=== PATIENT | male | born 1960 | race Caucasian/White ===

== ENCOUNTER 2017-01-17 12:10 | Inpatient (IN) | payer OTHER ==
[~2017-01-17] VITALS: Ht 175.3 cm; Wt 59.0 kg
[~2017-01-17 12:10] MED LIST: ALBUAER3 INH; FERR325T8 PO; HYDR-3516 PO; LIDOCAINE HCL 1% PF 5 ML AMPULE OTHER ONE; LOPE2CAP PO; MAPA325T PO; MIDAZOLAM HCL 2 MG/2 ML VIAL IV ONE; NABU1TAB37 PO; PROPOFOL 200 MG/20 ML AMP IV ONE; THERTAB12 PO; TIOT1AER INH; TIZA2TAB PO; UMEC1AER INH; ZOFR4TAB PO
[2017-01-17 12:26] VITALS: BP 110/68; PULSE 70; RESP 18; TEMP 98; O2SAT 100
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
[2017-01-17] MEDS ORDERED: SPIRCAP INH (12:58)
[2017-01-17] MEDS ORDERED: MILKSUS PO (12:58)
[2017-01-17] MEDS ORDERED: HYDR-3534 PO (12:58)
[2017-01-17] MEDS ORDERED: PANTOPRAZOLE SODIUM 40 MG VIAL IVP ONE (13:00)
[2017-01-17] MEDS ORDERED: SODIUM CHLORIDE 0.9% FLUSH 10 ML FLUSH IVF PRN (13:00)
[2017-01-17] MEDS ORDERED: SODIUM CHLOR 0.9% 1000 ML INJ 1,000 ML IV ONE (13:00)
[2017-01-17 13:05] VITALS: BP 125/60
[2017-01-17 13:40] LABS: AUTOMATED NEUTROPHIL # 6.1 TH/MM3 (1.8-7.7); BASOPHIL # 0.1 TH/MM3 (0-0.2); BASOPHIL % 0.9 % (0.0-2.0); EOSINOPHIL # 0.1 TH/MM3 (0-0.4); EOSINOPHIL % 1.3 % (0.0-4.0); HEMO FLAGS DIFF FINAL; LYMPH % 20.7 % (9.0-44.0); LYMPHOCYTE # 1.8 TH/MM3 (1.0-4.8); MEAN CELL VOLUME 90.4 FL (80.0-100.0); MEAN CORPUSCULAR HEMOGLOBIN 28.9 PG (27.0-34.0); MONO % 7.6 % (0.0-8.0); NEUT % 69.5 % (16.0-70.0); PLATELET COUNT 321 TH/MM3 (150-450); RED BLOOD COUNT 3.77 MIL/MM3 (4.50-5.90); RED CELL DISTRIBUTION WIDTH 17.7 % (11.6-17.2); WHITE BLOOD COUNT 8.8 TH/MM3 (4.0-11.0)
[2017-01-17 13:48] LABS: BACTERIA, URINE MANY /hpf; BLOOD, URINE SMALL (NEG); GLUCOSE,URINE NEG (NEG); KETONE, URINE NEG (NEG); NITRITE,URINE POS (NEG); URINE COLOR YELLOW (YELLW/STRAW)
[2017-01-17 13:49] LABS: APTT (PATIENT) 29.7 SEC (24.3-30.1); INTERNATIONAL NORMALIZED RATIO 0.9 RATIO; PROTHROMBIN TIME - PATIENT 10.2 SEC (9.8-11.6)
[2017-01-17 13:49] LABS: COMMENT (UR) CULTURE INDICATED; CULTURE IF INDICATED CULTURE INDICATED
[2017-01-17 14:00] LABS: ANION GAP 9 MEQ/L (5-15); AST (GOT) 8 U/L (15-37); BICARBONATE 14.2 MEQ/L (21.0-32.0); BLOOD UREA NITROGEN 33 MG/DL (7-18); CHLORIDE 116 MEQ/L (98-107); GLOMERULAR FILTRATION RATE 43 ML/MIN (>89); POTASSIUM 4.6 MEQ/L (3.5-5.1); SODIUM (NA) 139 MEQ/L (136-145)
[2017-01-17 14:04] LABS: ALKALINE PHOSPHATASE 94 U/L (45-117); ALT (GPT) 7 U/L (12-78); TOTAL BILIRUBIN ADULT 0.5 MG/DL (0.2-1.0)
[2017-01-17] MEDS ORDERED: IOHEXOL 350 MG/ML 10 ML VIAL (for RAD DIAG) IVCONTRAST ONE (14:33)
--- NOTE | 2017-01-17 15:05 | RADRPT ---
EXAM DATE/TIME: 01/17/2017 14:33 [facility] COMPARISON: CT ABDOMEN & PELVIS W CONTRAST, September 16, 2016, 14:46. INDICATIONS : Diffuse abdomen pain and vomiting today. IV CONTRAST: 92 cc Omnipaque 350 (iohexol) IV ORAL CONTRAST: No oral contrast ingested. RADIATION DOSE: 4.56 CTDIvol (mGy) MEDICAL HISTORY : Pancreatitis. Carcinoma, bladder. Hepatitis C. SURGICAL HISTORY : Appendectomy. ENCOUNTER: Initial ACUITY: 1 day PAIN SCALE: 7/10 LOCATION: Bilateral abdomen TECHNIQUE: Volumetric scanning of the abdomen and pelvis was performed. Using automated exposure control and ad justment of the mA and/or kV according to patient size, radiation dose was kept as low as reasonably achievable to obtain optimal diagnostic quality images. DICOM format image data is available electro nically for review and comparison. FINDINGS: No pleural or pericardial effusions are seen. Liver, gallbladder, spleen, adrenal glands are unremark able. There are parenchymal calcifications of the pancreas characteristic of chronic pancreatitis najma cifications without evidence for acute pancreatitis. No signs of bowel obstruction. There is a promin ent stool ball in the rectum. There are numerous surgical clips in the pelvis and the bladder is not visualized consistent with previous cystectomy. There is severe left sided hydronephrosis, and there are bilateral nonobstructing renal calculi identified with layering calcifications in the left mid to lower pole collecting system and nonobstructing stones on the right. Right lower quadrant ileostomy is noted. Lung bases are clear. Osseous structures demonstrate degenerative changes of the spine. CONCLUSION: 1. Severe left hydronephrosis and bilateral nephrolithiasis, nonobstructing identified. 2. Chronic pancreatic calcifications and not mentioned above are numerous varices in the periesophage al, gastric and left upper quadrant. Heath Charles MD on January 17, 2017 at 14:44 Board Certified Radiologist. This report was verified electronically.
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
[2017-01-17] MEDS ORDERED: LOPERAMIDE HCL 2 MG CAP PO PRN (16:00)
[2017-01-17] MEDS ORDERED: MAGNESIUM HYDROXIDE SUSP 30 ML CUP PO PRN ×2 (16:00→16:15)
[2017-01-17] MEDS ORDERED: ALBUTEROL SULFATE 90 MCG/ACT HFA 8 GM INHALER INH PRN (16:00)
[2017-01-17] MEDS ORDERED: NALOXONE HCL 0.4 MG/ML AMP IV PUSH PRN (16:15)
[2017-01-17] MEDS ORDERED: BISACODYL 10 MG SUPP RECTAL PRN (16:15)
[2017-01-17] MEDS ORDERED: ONDANSETRON HCL 4 MG/2 ML VIAL IVP PRN (16:15)
[2017-01-17] MEDS ORDERED: SENNOSIDES 8.6 MG TAB PO PRN (16:15)
[2017-01-17] MEDS ORDERED: LACTULOSE SYRUP 20 GM/30 ML CUP PO PRN (16:15)
[2017-01-17] MEDS ORDERED: SODIUM CHLORIDE 0.9% FLUSH 10 ML FLUSH IV FLUSH PRN (16:15)
[2017-01-17] MEDS: LACTATED RINGER'S 1000 ML INJ 1,000 ML IV SCH ×2 (16:22→17:00)
[2017-01-17] MEDS ORDERED: ONDANSETRON ODT 4 MG TAB PO PRN (16:30)
[2017-01-17] MEDS ORDERED: PILL SPLITTER OTHER PRN (16:30)
--- NOTE | 2017-01-17 16:43 | PD.PROCEDR ---
GI Procedure PROCEDURE PERFORMED Upper endoscopy with biopsy INDICATION FOR PROCEDURE Nausea vomiting coffee-ground emesis PROCEDURE: The procedure, risks and benefits were discussed with Mr. Peguero and informed consent was obtained. Anesthesia sedated him with Diprivan. He was placed in the left lateral decubitus position. EGD: The Pentax videoscope was introduced through the oropharynx and advanced to the second portion of the duodenum under direct visualization. Retroflexion was performed in the stomach. FINDINGS: Mild esophagitis Mild gastritis was kept gastropathy in the body of the stomach biopsy from the body ESTIMATED BLOOD LOSS: None SPECIMENS REMOVED: Body of the stomach COMPLICATIONS: None IMPRESSION: No sign of active bleeding, no old blood or coffee ground emesis Gastropathy Mild gastritis Mild esophagitis PLAN: Continue PPI patient Await biopsy results Keegan Hester MD Jan 17, 2017 16:43
[2017-01-17] MEDS ORDERED: DO NOT ADM ANY ANTICOAGULANT DRUGS PRN (16:50)
[2017-01-17] MEDS ORDERED: *RESP: ALBUTEROL 2.5 MG/3 ML NEB (PRN) PERIprocedural Use ONLY NEB ONE (16:55)
--- NOTE | 2017-01-17 18:05 | HHI.PR ---
Objective Objective Results - Vital Signs Date Time Temp Pulse Resp B/P (MAP) Pulse Ox O2 Delivery O2 Flow Rate FiO2 01/17/17 17:18 100 01/17/17 13:05 125/60 (81) 01/17/17 12:26 98.0 70 18 110/68 (82) 100 Room Air 01/17/17 12:21 18 I/O 01/16/17 01/16/17 01/16/17 01/17/17 01/17/17 01/17/17 07:00 15:00 23:00 07:00 15:00 23:00 Intake Total 200 ml Balance 200 ml Other 200 ml (Judith Bah) Result Diagram: 01/17/17 1230 01/17/17 1230 A/P Assessment and Plan [id number] (Judith Bah) Assessment and Plan seen, examined by myself, Dr Romero, today Discussed with patient Discussed with mid level provider This is a 56-year-old male with history of advanced bladder cancer status post cystectomy with ileal conduit. [facility] after vomiting coffee grounds. When asked about why he is at the prison his reply was "I am dying of cancer" An upper endoscopy was done and shows esophagogastritis, endoscopic biopsy was done of his stomach His hemoglobin is stable, also he has a left-sided severe hydronephrosis, urology is consulted, the patient smokes 3 packs of cigarettes a day, CT scan impression was of possible esophageal varices however it was no reported bleeding from the varices on endoscopy Discussed with nurse Continue Protonix Follow hemoglobin levels Full history and physical to follow The exam, history, and the medical decision-making described in the above note were completed with the assistance of the mid-level provider. I reviewed the findings presented. I attest that I had a [id number] encounter with the patient on the same day, and personally performed and documented my assessment and findings in the medical record. (Garcia Romero MD) Judith Bah Jan 17, 2017 18:05 Garcia Romero MD Jan 17, 2017 18:39
[2017-01-17] MEDS: FERROUS SULFATE 325 MG (65 MG ELEMENTAL IRON) TAB PO SCH (18:12)
--- NOTE | 2017-01-17 18:40 | HP.UPD ---
H&P Update Note The Pre-Admit History and Physical Examination regarding the above named patient was reviewed (including, but not limited to, vital signs, medications, allergies, co-morbid conditions), and upon re-examination it is noted that: seen, examined by myself, Dr Romero, today Discussed with patient Discussed with mid level provider This is a 56-year-old male with history of advanced bladder cancer status post cystectomy with ileal conduit. [facility] after vomiting coffee grounds. When asked about why he is at the jail his reply was "I am dying of cancer" An upper endoscopy was done and shows esophagogastritis, endoscopic biopsy was done of his stomach His hemoglobin is stable, also he has a left-sided severe hydronephrosis, urology is consulted, the patient smokes 3 packs of cigarettes a day, CT scan impression was of possible esophageal varices however it was no reported bleeding from the varices on endoscopy Discussed with nurse Continue Protonix Follow hemoglobin levels Full history and physical to follow Garcia Romero MD Jan 17, 2017 18:39
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
[2017-01-17 20:00] VITALS: BP 82/50; PULSE 78; RESP 18; TEMP 97.4; O2SAT 100
[2017-01-17 20:16] VITALS: BP 92/51; PULSE 68; RESP 18; TEMP 97.7; O2SAT 100
[2017-01-17] MEDS: PANTOPRAZOLE SOD 40 MG DELAYED RELEASE TAB PO SCH (22:44)
[2017-01-17] MEDS: DOCUSATE SODIUM 50 MG/SENNA 8.6 MG TAB PO SCH (22:46)
[2017-01-17] MEDS: NABUMETONE 500 MG TAB PO SCH (22:47)
[2017-01-17] MEDS: ACETAMINOPHEN/HYDROcodone 325 MG/7.5 MG TAB PO SCH (22:47)
[2017-01-17] MEDS: SODIUM CHLORIDE 0.9% FLUSH 10 ML FLUSH IV FLUSH SCH (22:47)
[2017-01-18] VITALS (7 sets, daily range): BP systolic 68–92; BP diastolic 47–70; PULSE 62–78; RESP 18; TEMP 97.2–98.1; O2SAT 95–100
[2017-01-18] MEDS ORDERED: PANTOPRAZOLE SODIUM 40 MG VIAL IV PUSH SCH (01:00)
[2017-01-18] MEDS: LACTATED RINGER'S 1000 ML INJ 1,000 ML IV SCH (03:09)
[2017-01-18] MEDS: TIOTROPIUM BROMIDE 18 MCG INH INH SCH (09:00)
[2017-01-18] MEDS: SODIUM CHLORIDE 0.9% FLUSH 10 ML FLUSH IV FLUSH SCH ×2 (09:00→20:25)
[2017-01-18] MEDS: PANTOPRAZOLE SOD 40 MG DELAYED RELEASE TAB PO SCH ×2 (09:25→20:24)
[2017-01-18] MEDS: MULTIVITAMINS/MINERALS THERAPEUTIC TAB PO SCH (09:25)
[2017-01-18] MEDS: DOCUSATE SODIUM 50 MG/SENNA 8.6 MG TAB PO SCH ×2 (09:25→20:24)
[2017-01-18] MEDS: FERROUS SULFATE 325 MG (65 MG ELEMENTAL IRON) TAB PO SCH ×3 (09:26→17:46)
[2017-01-18] MEDS: NABUMETONE 500 MG TAB PO SCH ×2 (09:26→20:24)
[2017-01-18] MEDS: ACETAMINOPHEN/HYDROcodone 325 MG/7.5 MG TAB PO SCH ×2 (09:28→20:24)
[2017-01-18 12:06] LABS: AUTOMATED NEUTROPHIL # 3.8 TH/MM3 (1.8-7.7); BASOPHIL # 0.1 TH/MM3 (0-0.2); BASOPHIL % 0.9 % (0.0-2.0); EOSINOPHIL # 0.1 TH/MM3 (0-0.4); EOSINOPHIL % 2.5 % (0.0-4.0); HEMATOCRIT 28.4 % (39.0-51.0); HEMO FLAGS DIFF FINAL; LYMPH % 24.7 % (9.0-44.0); LYMPHOCYTE # 1.5 TH/MM3 (1.0-4.8); MEAN CELL VOLUME 90.5 FL (80.0-100.0); MEAN CORPUSCULAR HEMOGLOBIN 29.4 PG (27.0-34.0); MEAN CORPUSCULAR HGB CONC 32.5 % (32.0-36.0); MONO % 8.8 % (0.0-8.0); NEUT % 63.1 % (16.0-70.0); PLATELET COUNT 267 TH/MM3 (150-450); RED BLOOD COUNT 3.14 MIL/MM3 (4.50-5.90); RED CELL DISTRIBUTION WIDTH 18.1 % (11.6-17.2); WHITE BLOOD COUNT 6.1 TH/MM3 (4.0-11.0)
--- NOTE | 2017-01-18 12:13 | HHI.PR ---
Subjective Subjective Remarks no abd pain no n/v tolerating diet well low BP noted, asymptomatic anxious to go back to [facility] Review of Systems Constitutional Constitutional Remarks 12 point ros completed, neg except as noted above Vitals/Results Intake & Output 01/18/17 01/18/17 01/19/17 15:00 23:00 07:00 Intake Total 400 ml Balance 400 ml Intake IV Total 400 ml Vital Signs Vital Signs Date Time Temp Pulse Resp B/P (MAP) Pulse Ox O2 Delivery O2 Flow Rate FiO2 01/18/17 12:05 98.0 73 18 91/53 (66) 98 01/18/17 11:24 99 21 01/18/17 08:27 98.1 75 18 84/53 (63) 100 01/18/17 04:00 97.2 71 18 68/47 (54) 95 01/18/17 03:12 98.0 78 18 80/70 (73) 98 01/18/17 03:12 98 01/17/17 23:48 18 01/17/17 20:16 97.7 68 18 92/51 (65) 100 01/17/17 20:00 97.4 78 18 82/50 (61) 100 01/17/17 17:18 100 01/17/17 17:15 97.3 74 17 97/64 (75) 100 Room Air 01/17/17 17:00 59 17 90/60 (70) 100 Room Air 01/17/17 16:50 97.3 70 17 90/61 (71) 100 Room Air 01/17/17 13:05 125/60 (81) 01/17/17 12:26 98.0 70 18 110/68 (82) 100 Room Air 01/17/17 12:21 18 CBC/BMP: 01/17/17 1230 01/17/17 1230 Lab Results Laboratory Tests Test 01/17/17 12:30 01/17/17 13:00 White Blood Count 8.8 TH/MM3 Red Blood Count 3.77 MIL/MM3 Hemoglobin 10.9 GM/DL Hematocrit 34.0 % Mean Corpuscular Volume 90.4 FL Mean Corpuscular Hemoglobin 28.9 PG Mean Corpuscular Hemoglobin Concent 32.0 % Red Cell Distribution Width 17.7 % Platelet Count 321 TH/MM3 Mean Platelet Volume 7.9 FL Neutrophils (%) (Auto) 69.5 % Lymphocytes (%) (Auto) 20.7 % Monocytes (%) (Auto) 7.6 % Eosinophils (%) (Auto) 1.3 % Basophils (%) (Auto) 0.9 % Neutrophils # (Auto) 6.1 TH/MM3 Lymphocytes # (Auto) 1.8 TH/MM3 Monocytes # (Auto) 0.7 TH/MM3 Eosinophils # (Auto) 0.1 TH/MM3 Basophils # (Auto) 0.1 TH/MM3 CBC Comment DIFF FINAL Differential Comment Prothrombin Time 10.2 SEC Prothromb Time International Ratio 0.9 RATIO Activated Partial Thromboplast Time 29.7 SEC Blood Urea Nitrogen 33 MG/DL Creatinine 1.66 MG/DL Random Glucose 87 MG/DL Total Protein 7.0 GM/DL Albumin 3.5 GM/DL Calcium Level 9.5 MG/DL Alkaline Phosphatase 94 U/L Aspartate Amino Transf (AST/SGOT) 8 U/L Alanine Aminotransferase (ALT/SGPT) 7 U/L Total Bilirubin 0.5 MG/DL Sodium Level 139 MEQ/L Potassium Level 4.6 MEQ/L Chloride Level 116 MEQ/L Carbon Dioxide Level 14.2 MEQ/L Anion Gap 9 MEQ/L Estimat Glomerular Filtration Rate 43 ML/MIN Lipase 240 U/L Urine Color YELLOW Urine Turbidity CLOUDY Urine pH 7.0 Urine Specific [place] 1.011 Urine Protein 30 mg/dL Urine Glucose (UA) NEG mg/dL Urine Ketones NEG mg/dL Urine Occult Blood SMALL Urine Nitrite POS Urine Bilirubin NEG Urine Urobilinogen LESS THAN 2.0 MG/DL Urine Leukocyte Esterase LARGE Urine RBC 13 /hpf Urine WBC /hpf Urine WBC Clumps RARE Urine Amorphous Sediment FEW Urine Bacteria MANY /hpf Microscopic Urinalysis Comment CULTURE INDICATED Microbiology Microbiology 01/17/17 Urine Culture, Received Pending Physical Exam General General Appearance: Well Developed, No Acute Distress, Comfortable Eyes Eye Exam: Pupils Equal, Pupils Reactive Ears & Nose Ears & Nose Exam: Nasal Mucosa [place] Throat Throat Exam: Oral Mucosa [place] & Moist Neck Neck Exam: Neck Supple, Trachea Midline Pulmonary Resp Exam: Breath Sounds Equal, Decreased Bases Cardiology CV Exam: Regular Gastrointestinal/Abdomen GI Exam: Soft, Non-Tender, Bowel Sounds Present, Non-Distended Genitourinary Remarks urostomy Musculoskeletal MS Exam: Joints Intact Integumentary Skin Exam: Warm, Dry Extremeties Extremities Exam: No Edema, Pedal Pulses Palpable Neurologic Neuro Exam: Alert, Awake, Oriented, Speech Clear, Moving All Extremities, No Focal Deficits Psychiatric Psych Exam: Appropriate Responses VTE Prophylaxis VTE Prophylaxis Device: SCDs PUD Prophylasis PUD Prophylaxis: Protonix Assessment/Plan Problem List: (1) HEATHER (acute kidney injury) ICD Codes: N17.9 - Acute kidney failure, unspecified Status: Acute (2) Nausea & vomiting ICD Codes: R11.2 - Nausea with vomiting, unspecified Status: Acute (3) Metabolic acidosis ICD Codes: E87.2 - Acidosis Status: Acute (4) Hydronephrosis ICD Codes: N13.30 - Unspecified hydronephrosis Status: Acute (5) Hematochezia ICD Codes: K92.1 - Melena Status: Acute (6) Hx of bladder cancer ICD Codes: Z85.51 - Personal history of malignant neoplasm of bladder Status: Chronic (7) UTI (urinary tract infection) ICD Codes: N39.0 - UTI (urinary tract infection) Status: Acute (8) Tobacco abuse ICD Codes: Z72.0 - Tobacco abuse Status: Chronic (9) Anemia ICD Codes: D64.9 - Anemia Status: Chronic (10) COPD (chronic obstructive pulmonary disease) ICD Codes: J44.9 - Chronic obstructive pulmonary disease, unspecified Status: Chronic (11) H/O total cystectomy ICD Codes: Z98.890 - Other specified postprocedural states Status: Chronic (12) Pancreatitis ICD Codes: K85.90 - Acute pancreatitis without necrosis or infection, unspecified Status: Chronic (13) Hx of hepatitis C ICD Codes: Z86.19 - Personal history of other infectious and parasitic diseases Status: Chronic (14) History of lung cancer ICD Codes: Z85.118 - History of lung cancer Status: Chronic Assessment/Plan 56 y.o. presented with n/v, coffee ground emesis, black stools Upper GI bleed Anemia Hx of hep C, stable -appreciate GI input -S/P EGD 01/17 No sign of active bleeding, no old blood or coffee ground emesis/ Gastropathy/Mild gastritis/Mild esophagitis -continue PPI -HH stable, monitor CBC HEATHER Metabolic acidosis Hypotension, asymptomatic -Start NS + sodium bicarb at 75/hr -renal fx with little improvement, good UO -monitor renal function -Hypotensive, asymptomatic, not on meds at rehab Hx bladder cancer, had cystectomy and urostomy Left hydronephrosis and bilat nephrolithiasis -urology consultation, pending COPD, stable -continue Spiriva UTI -UC +GNR -start Cipro 250 mg po bid Chronic pancreatitis and prior pseudocyst -stable, monitor SCDs for DVT prophylaxis PPI for GI prophylaxis Labs in am Will wait for input from urology not ready for dc D/W RN D/W Dr. Romero D/W pt D/W CM This patient was seen by myself and Dr. Romero, this note is written on his behalf. Problem Qualifiers (1) Nausea & vomiting: Qualified Codes: K92.0 - Hematemesis; R11.0 - Nausea (2) UTI (urinary tract infection): Qualified Codes: N39.0 - Urinary tract infection, site not specified (3) Anemia: Qualified Codes: D64.9 - Anemia, unspecified (4) COPD (chronic obstructive pulmonary disease): Qualified Codes: J44.9 - Chronic obstructive pulmonary disease, unspecified (5) Pancreatitis: Qualified Codes: K86.1 - Other chronic pancreatitis Sandra Jackson Jan 18, 2017 12:13
[2017-01-18 12:50] LABS: BICARBONATE 14.6 MEQ/L (21.0-32.0); POTASSIUM 4.3 MEQ/L (3.5-5.1)
[2017-01-18] MEDS: SODIUM BICARBONATE 8.4% INJ 50 MEQ in SODIUM CHLOR 0.9% 1000 ML INJ 1,000 ML IV SCH ×3 (14:00→22:34)
--- NOTE | 2017-01-18 17:01 | HHI.GIFU ---
Subjective Remarks Pt resting in bed. No complaints. "The lasagna here is really great." (Connie Mejia) Objective Vitals I&O Vital Signs Date Time Temp Pulse Resp B/P (MAP) Pulse Ox O2 Delivery O2 Flow Rate FiO2 01/18/17 16:17 97.6 62 18 92/52 (65) 99 01/18/17 12:05 98.0 73 18 91/53 (66) 98 01/18/17 11:24 99 21 01/18/17 08:27 98.1 75 18 84/53 (63) 100 01/18/17 04:00 97.2 71 18 68/47 (54) 95 01/18/17 03:12 98.0 78 18 80/70 (73) 98 01/18/17 03:12 98 01/17/17 23:48 18 01/17/17 20:16 97.7 68 18 92/51 (65) 100 01/17/17 20:00 97.4 78 18 82/50 (61) 100 01/17/17 17:18 100 01/17/17 17:15 97.3 74 17 97/64 (75) 100 Room Air 01/17/17 17:00 59 17 90/60 (70) 100 Room Air I/O 01/17/17 01/17/17 01/17/17 01/18/17 01/18/17 01/18/17 07:00 15:00 23:00 07:00 15:00 23:00 Intake Total 220 ml 2400 ml 880 ml Output Total 200 ml 1320 ml 275 ml Balance 20 ml 1080 ml 605 ml Intake Oral 480 ml IV Total 20 ml 2400 ml 400 ml Other 200 ml Output Urine Total 200 ml 1320 ml Stool Total 275 ml # Voids 1 4 # Bowel Movements 1 Laboratory Laboratory Tests Test 01/18/17 11:10 White Blood Count 6.1 Red Blood Count 3.14 Hemoglobin 9.2 Hematocrit 28.4 Mean Corpuscular Volume 90.5 Mean Corpuscular Hemoglobin 29.4 Mean Corpuscular Hemoglobin Concent 32.5 Red Cell Distribution Width 18.1 Platelet Count 267 Mean Platelet Volume 7.9 Neutrophils (%) (Auto) 63.1 Lymphocytes (%) (Auto) 24.7 Monocytes (%) (Auto) 8.8 Eosinophils (%) (Auto) 2.5 Basophils (%) (Auto) 0.9 Neutrophils # (Auto) 3.8 Lymphocytes # (Auto) 1.5 Monocytes # (Auto) 0.5 Eosinophils # (Auto) 0.1 Basophils # (Auto) 0.1 CBC Comment DIFF FINAL Differential Comment Blood Urea Nitrogen 30 Creatinine 1.61 Random Glucose 120 Calcium Level 8.3 Sodium Level 141 Potassium Level 4.3 Chloride Level 119 Carbon Dioxide Level 14.6 Anion Gap 7 Estimat Glomerular Filtration Rate 45 Date/Time Source Procedure Growth Status 01/17/17 13:00 Urine Clean Catch Urine Culture - Preliminary Gram Negative Bar Resulted Imaging Last Impressions Abdomen/Pelvis CT 01/17/17 0000 Signed Impressions: Service Date/Time: Tuesday, January 17, 2017 14:33 - CONCLUSION: 1. Severe left hydronephrosis and bilateral nephrolithiasis, nonobstructing identified. 2. Chronic pancreatic calcifications and not mentioned above are numerous varices in the periesophageal, gastric and left upper quadrant. Heath Charles MD Physical Exam HEENT: PERRL; normocephalic; atraumatic; no jaundice. CHEST: CTA CARDIAC: RRR ABDOMEN: Soft, nondistended, nontender; no hepatosplenomegaly; bowel sounds are present in all four quadrants. Ostomy bag with some bits of mucus, no stool seen EXTREMITIES: No clubbing, cyanosis, or edema. SKIN: Normal; no rash; no jaundice. WORKDAY DIRECTOR: No focal deficits; alert and oriented times three. (Connie Mejia [facility]) Assessment and Plan Plan ASSESSMENT: - Upper GI bleed, Coffee ground emesis, Melena. CT Scan abdomen and pelvis without IV contrast (01/17/17)---> Severe left hydronephrosis and bilateral nephrolithiasis nonobstructing identified. Chronic pancreatic calcifications and not mentioned above are numerous varices in the periesophageal, gastric, and left upper quadrant. EGD (06/07/16)---> Esophagitis distal esophagus, gastritis antrum, duodenitis duodenal bulb, fundus- external compression fundus, retroflexed views revealed a hiatal hernia, retroflexed views revealed external compression, cystic lesion. Pathology with duodenal mucosa with no significant histopathologic abnormalities. The villous architecture is normal, gastric antrum with no tissue identified identified in specimen container, antral and body type gastric mucosa with mild lazaro stain is negaive for helicobacter, distal esophagus with squamous mucosa with mild chronic inflammation. MRCP (06/05/16)-- -> cystic mass appears to be arising from the stomach, Endoscopy and biopsy recommended, pancreatitis with inflammatory changes and minimal ascites. EUS was ordered for October, but not done. He is not actively bleeding. HH stable. PPI. - Anemia, mild. slight drop since yesterday - HEATHER. Creatinine 1.61 - Abn. U/A with hx of recurrent UTI, Cx gram neg bar - Hx chronic pancreatitis with pseudocyst (August of 2016). He was then hospitalized in August for acute on chronic pancreatitis and was noted to have a pseudocyst 6.5 cm x 2 cm at that time. IR was consulted for possible drainage, but did not feel that it was amenable to drainage. He was treated supportively and discharged to a rehabilitative center. He quit drinking 13 months ago. Lipase 240. - Hx bladder cancer. S/P cystectomy/urostomy. - Hx Hepatitis C Antibodies with undetectable viral load. PLAN: - MARIAN - await path - PPI - Monitor HH - Transfuse as necessary - Supportive care - Further recommendations to follow based on results of above - Pt seen and examined by Dr. Hester and myself and this note is written on his behalf (Connie Mejia) Plan Patient was seen and examined, agree with above-noted, feeling well, he would like to go home (Keegan Hester MD) Connie Mejia Jan 18, 2017 17:01 Keegan Hester MD Jan 19, 2017 13:25
[2017-01-18 17:40] LABS: BLOOD GAS BASE EXCESS -13.3 mmol/L (-2-2); BLOOD GAS CARBOXYHEMOGLOBIN 0.9 % (0-4); BLOOD GAS HCO3 12 mmol/L (22-26); BLOOD GAS METHEMOGLOBIN 1.2 % (0-2); BLOOD GAS O2 HGB SATURATION 96 % (90-100); BLOOD GAS OXYGEN CONTENT 11.6 Vol % (12.0-20.0); BLOOD GAS PCO2 26 mmHg (38-42); BLOOD GAS PO2 112 mmHg (61-120); BLOOD GAS TOTAL HGB 8.5 G/DL (12.0-16.0); TEMP CORR TO 98.6
[2017-01-18 17:42] LABS: CRITICAL VALUE YES; DRAW SITE RT RADIAL; FIO2 21 %; NUMBER OF ARTERIAL PUNCTURES 1; OXYGEN DEVICE RA; STAT NO; ULNAR PULSE PRESENT
[2017-01-18] MEDS: NICOTINE 21 MG/24 HR PATCH T-DERMAL SCH (17:46)
[2017-01-18] MEDS: SODIUM BICARBONATE 650 MG TAB PO SCH ×2 (18:27→22:00)
[2017-01-18] MEDS: CIPROFLOXACIN 250 MG TAB PO SCH (20:26)
[2017-01-18] MEDS ORDERED: REMOVE OLD PATCH T-DERMAL SCH (21:00)
[2017-01-19] VITALS (9 sets, daily range): BP systolic 81–125; BP diastolic 50–76; PULSE 61–87; RESP 17–20; TEMP 97.5–99.3; O2SAT 96–100
[2017-01-19] MEDS: SODIUM BICARBONATE 650 MG TAB PO SCH ×3 (06:00→21:14)
[2017-01-19] MEDS: PANTOPRAZOLE SOD 40 MG DELAYED RELEASE TAB PO SCH ×2 (09:07→21:14)
[2017-01-19] MEDS: CIPROFLOXACIN 250 MG TAB PO SCH ×2 (09:07→21:13)
[2017-01-19] MEDS: MULTIVITAMINS/MINERALS THERAPEUTIC TAB PO SCH (09:07)
[2017-01-19] MEDS: FERROUS SULFATE 325 MG (65 MG ELEMENTAL IRON) TAB PO SCH ×3 (09:07→17:05)
[2017-01-19] MEDS: NABUMETONE 500 MG TAB PO SCH ×2 (09:08→21:14)
[2017-01-19] MEDS: REMOVE OLD PATCH T-DERMAL SCH (09:09)
[2017-01-19] MEDS: DOCUSATE SODIUM 50 MG/SENNA 8.6 MG TAB PO SCH ×2 (09:09→21:14)
[2017-01-19] MEDS: NICOTINE 21 MG/24 HR PATCH T-DERMAL SCH (09:09)
[2017-01-19] MEDS: SODIUM CHLORIDE 0.9% FLUSH 10 ML FLUSH IV FLUSH SCH ×2 (09:10→21:13)
[2017-01-19] MEDS: TIOTROPIUM BROMIDE 18 MCG INH INH SCH (09:10)
--- NOTE | 2017-01-19 09:24 | MB ---
cc: ANJALI PACHECO DATE OF CONSULTATION 01/19/2017 HISTORY OF PRESENT ILLNESS Mr. Peguero is a 56-year-old male with a history of high-grade bladder cancer who underwent cystectomy with ileal conduit one year ago. He has done well over time and presented to the emergency room with nausea and vomiting and a history of black tarry stools. He has a long history of alcohol abuse and had a history of chronic pancreatitis in the past causing chronic abdominal pain. The patient states that he is no longer drinking. There was a report of some dark tarry stools on admission. Recent CT scan of the abdomen and pelvis demonstrated left hydronephrosis with bilateral nephrolithiasis and left hydroureter but no stone was visualized. This could suggest that he has a ureteral stricture at the ileal-ureteral anastomosis causing his hydronephrosis. I have recommended a left percutaneous nephrostomy tube placement by Interventional Radiology for today with a nephroureteral stent and possible balloon dilatation of the distal left ureter. PAST MEDICAL HISTORY His medical history includes - 1. High-grade muscle invasive bladder cancer. 2. COPD. 3. Diarrhea. 4. Nausea and vomiting. 5. Hepatitis C. 6. Chronic pancreatitis. PAST SURGICAL HISTORY 1. Cystectomy with ileal conduit back in November of 2015 with neoadjuvant chemotherapy. 2. History of a left leg fracture. 3. Hernia repair. ALLERGIES CODEINE. PENICILLIN. SOCIAL HISTORY Noted for significant alcohol abuse. One pack per week smoker. No illicit drug use is noted. REVIEW OF SYSTEMS Notes nausea and vomiting, chronic back pain with abdominal pain, black tarry stools. Denies chest pain, shortness of breath, gait disturbances bleeding disorders, heat or cold intolerance, depression. The remaining review of systems were reviewed and are negative. PHYSICAL EXAMINATION PRESENT VITAL SIGNS: Temperature is 98.2, heart rate 71, respiratory 18, 85/56 blood pressure. GENERAL: He is a cachectic, thin 56-year-old male in no acute distress. HEENT: Normocephalic, atraumatic. Pupils equal round react to light. Extraocular movements intact. NECK: Supple. HEART: Regular rate and rhythm. LUNGS: Clear. ABDOMEN: Soft. Minimal tenderness is noted. Left CVA tenderness is noted with pain located in the middle of the spine on palpation. EXTREMITIES: No cyanosis, clubbing or edema. Neuro: CNII-XII intact Psych: generalized mood Skin: no lesions LABORATORY DATA White count 6.1, hemoglobin 9.2, hematocrit 28.4, platelet count of 267. Sodium 141, potassium 4.3, chloride 119, CO2 14.6, BUN of 30, creatinine 1.6, glucose of 120. PT 10.2, INR 0.9, PTT 29.7. Urinalysis shows nitrite is positive with 13 red cells, multiple white cells. Culture shows gram-negative rods. Sensitivities are currently pending. CT scan shows left hydronephrosis with hydroureter and bilateral renal calculi. ASSESSMENT A 56-year-old male with left-sided hydronephrosis status post cystectomy and ileoconduit in November of 2015 with bilateral nephrolithiasis. PLAN 1. He will need left percutaneous nephrostomy tube with possible nephroureteral stent and balloon dilatation of lower left ureter to rule out possible ureteral ileal stricture. 2. Treat urinary tract infections and await sensitivities. Currently on Cipro. 3. He will need left percutaneous nephrolithotomy in the future to relieve his stone burden along with right-sided extracorporeal shock wave lithotripsy to eradicate bilateral stones. Thank for the consult and allowing me to participate in the care of this patient. Anjali BLACK/ANNETTE /8:56 AM /9:08 AM ROULA
[2017-01-19] MEDS: SODIUM BICARBONATE 8.4% INJ 50 MEQ in SODIUM CHLOR 0.9% 1000 ML INJ 1,000 ML IV SCH (09:43)
[2017-01-19] MEDS: ACETAMINOPHEN/HYDROcodone 325 MG/10 MG TAB PO SCH ×2 (09:43→21:14)
--- NOTE | 2017-01-19 10:47 | HHI.PR ---
Subjective Subjective Remarks Complaining of back pain No chest pain No shortness of breath Urostomy noted with clear urine Tolerating diet well, no nausea, no vomiting No hematemesis Nothing by mouth, going for placement of left percutaneous nephrostomy tube with stent Review of Systems Constitutional Constitutional Remarks 12 point ros completed, neg except as noted above Vitals/Results Vital Signs Vital Signs Date Time Temp Pulse Resp B/P (MAP) Pulse Ox O2 Delivery O2 Flow Rate FiO2 01/19/17 08:56 97.8 73 17 88/54 (65) 98 01/19/17 04:00 98.2 71 18 85/50 (62) 99 01/18/17 23:00 01/18/17 20:00 97.4 73 18 79/49 (59) 98 01/18/17 16:17 97.6 62 18 92/52 (65) 99 01/18/17 12:05 98.0 73 18 91/53 (66) 98 01/18/17 11:24 99 21 CBC/BMP: 01/18/17 1110 01/18/17 1110 Lab Results Laboratory Tests Test 01/18/17 11:10 01/18/17 16:22 White Blood Count 6.1 TH/MM3 Red Blood Count 3.14 MIL/MM3 Hemoglobin 9.2 GM/DL Hematocrit 28.4 % Mean Corpuscular Volume 90.5 FL Mean Corpuscular Hemoglobin 29.4 PG Mean Corpuscular Hemoglobin Concent 32.5 % Red Cell Distribution Width 18.1 % Platelet Count 267 TH/MM3 Mean Platelet Volume 7.9 FL Neutrophils (%) (Auto) 63.1 % Lymphocytes (%) (Auto) 24.7 % Monocytes (%) (Auto) 8.8 % Eosinophils (%) (Auto) 2.5 % Basophils (%) (Auto) 0.9 % Neutrophils # (Auto) 3.8 TH/MM3 Lymphocytes # (Auto) 1.5 TH/MM3 Monocytes # (Auto) 0.5 TH/MM3 Eosinophils # (Auto) 0.1 TH/MM3 Basophils # (Auto) 0.1 TH/MM3 CBC Comment DIFF FINAL Differential Comment Blood Urea Nitrogen 30 MG/DL Creatinine 1.61 MG/DL Random Glucose 120 MG/DL Calcium Level 8.3 MG/DL Sodium Level 141 MEQ/L Potassium Level 4.3 MEQ/L Chloride Level 119 MEQ/L Carbon Dioxide Level 14.6 MEQ/L Anion Gap 7 MEQ/L Estimat Glomerular Filtration Rate 45 ML/MIN Blood Gas Puncture Site RT RADIAL Blood Gas Patient Temperature 98.6 Blood Gas HCO3 12 mmol/L Blood Gas Base Excess -13.3 mmol/L Blood Gas Oxygen Saturation 96 % Arterial Blood pH 7.29 Arterial Blood Partial Pressure CO2 26 mmHg Arterial Blood Partial Pressure O2 112 mmHg Arterial Blood Oxygen Content 11.6 Vol % Arterial Blood Carboxyhemoglobin 0.9 % Arterial Blood Methemoglobin 1.2 % Blood Gas Hemoglobin 8.5 G/DL Oxygen Delivery Device RA Blood Gas Inspired Oxygen 21 % Physical Exam General General Appearance: Well Developed, No Acute Distress, Comfortable Eyes Eye Exam: Pupils Equal, Pupils Reactive Ears & Nose Ears & Nose Exam: Nasal Mucosa [place] Throat Throat Exam: Oral Mucosa [place] & Moist Neck Neck Exam: Neck Supple, Trachea Midline Pulmonary Resp Exam: Breath Sounds Equal, Decreased Bases Cardiology CV Exam: Regular Gastrointestinal/Abdomen GI Exam: Soft, Non-Tender, Bowel Sounds Present, Non-Distended Genitourinary Remarks urostomy Musculoskeletal MS Exam: Joints Intact Integumentary Skin Exam: Warm, Dry Extremeties Extremities Exam: No Edema, Pedal Pulses Palpable Neurologic Neuro Exam: Alert, Awake, Oriented, Speech Clear, Moving All Extremities, No Focal Deficits Psychiatric Psych Exam: Appropriate Responses VTE Prophylaxis VTE Prophylaxis Device: SCDs PUD Prophylasis PUD Prophylaxis: Protonix Assessment/Plan Problem List: (1) HEATHER (acute kidney injury) ICD Codes: N17.9 - Acute kidney failure, unspecified Status: Acute (2) Nausea & vomiting ICD Codes: R11.2 - Nausea with vomiting, unspecified Status: Acute (3) Metabolic acidosis ICD Codes: E87.2 - Acidosis Status: Acute (4) Hydronephrosis ICD Codes: N13.30 - Unspecified hydronephrosis Status: Acute (5) Hematochezia ICD Codes: K92.1 - Melena Status: Acute (6) Hx of bladder cancer ICD Codes: Z85.51 - Personal history of malignant neoplasm of bladder Status: Chronic (7) UTI (urinary tract infection) ICD Codes: N39.0 - UTI (urinary tract infection) Status: Acute (8) Tobacco abuse ICD Codes: Z72.0 - Tobacco abuse Status: Chronic (9) Anemia ICD Codes: D64.9 - Anemia Status: Chronic (10) COPD (chronic obstructive pulmonary disease) ICD Codes: J44.9 - Chronic obstructive pulmonary disease, unspecified Status: Chronic (11) H/O total cystectomy ICD Codes: Z98.890 - Other specified postprocedural states Status: Chronic (12) Pancreatitis ICD Codes: K85.90 - Acute pancreatitis without necrosis or infection, unspecified Status: Chronic (13) Hx of hepatitis C ICD Codes: Z86.19 - Personal history of other infectious and parasitic diseases Status: Chronic (14) History of lung cancer ICD Codes: Z85.118 - History of lung cancer Status: Chronic Assessment/Plan 56 y.o. presented with n/v, coffee ground emesis, black stools Upper GI bleed Anemia Hx of hep C, stable -appreciate GI input -S/P EGD 01/17 No sign of active bleeding, no old blood or coffee ground emesis/ Gastropathy/Mild gastritis/Mild esophagitis -continue PPI -HH stable, monitor CBC HEATHER Metabolic acidosis Hypotension, asymptomatic -Continue with NS + sodium bicarb at 75/hr -PO Bicarb started as well. -renal fx with little improvement, good UOP -monitor renal function -Hypotensive, asymptomatic, not on meds at rehab -Cortisol level pending -Blood pressure remains low, 88/54, asymptomatic. Hx bladder cancer, had cystectomy and urostomy Left hydronephrosis and bilat nephrolithiasis -Dr. Tucker evaluated, input appreciated. -Patient going to IR for placement of a left percutaneous nephrostomy tube with stent, rule out urothelial stricture. -Having back pain, continue with pain management. -Per urology, will need left percutaneous nephrolithotomy along with right- sided extracorporeal shockwave lithotripsy to eradicate bilateral stones. COPD, stable -continue Spiriva UTI -UC + Escherichia coli and Morganella morganii -Continue with Cipro 250 mg po bid Chronic pancreatitis and prior pseudocyst -stable, monitor SCDs for DVT prophylaxis PPI for GI prophylaxis Patient nothing by mouth, going for urological procedure If stable, possible discharge tomorrow Laboratory workup pending D/W RN D/W Dr. Romero D/W pt This patient was seen by myself and Dr. Romero, this note is written on his behalf. Problem Qualifiers (1) Nausea & vomiting: Qualified Codes: K92.0 - Hematemesis; R11.0 - Nausea (2) UTI (urinary tract infection): Qualified Codes: N39.0 - Urinary tract infection, site not specified (3) Anemia: Qualified Codes: D64.9 - Anemia, unspecified (4) COPD (chronic obstructive pulmonary disease): Qualified Codes: J44.9 - Chronic obstructive pulmonary disease, unspecified (5) Pancreatitis: Qualified Codes: K86.1 - Other chronic pancreatitis Sandra Jackson [employer] Jan 19, 2017 10:46
[2017-01-19] MEDS ORDERED: MIDAZOLAM HCL 5 MG/5 ML VIAL ONE (14:14)
[2017-01-19] MEDS ORDERED: IOHEXOL 350 MG/ML 50 ML BTL (for RAD DIAG) OTHER ONE (14:58)
--- NOTE | 2017-01-19 15:30 | RADRPT ---
EXAM DATE/TIME: 01/19/2017 13:54 [place] COMPARISON: No previous studies available for comparison. INDICATIONS : Patient with severe left hydronephrosis and bilateral nephrolithiasis in need of nephroureteral dulce ter placement. MEDICAL HISTORY : Bladder cancer, Chemotherapy, COPD, Hepatitis C, Chronic pancreatitis SURGICAL HISTORY : Cystectomy with ileal conduit, Hernia repair ENCOUNTER: Initial ACUITY: 4 - 6 days PAIN SCORE: 0/10 FLUORO TIME: 7.6 minutes IMAGE SERIES: 3 SEDATION TIME: 25 minutes CONTRAST: 20 cc Omnipaque (iohexol) 350 MEDICATION(S): 1.) 3 mg midazolam (Versed) IV 2.) 150 mcg fentanyl (Sublimaze) IV DEVICE(S): 1.) 8 [place] [id number] nephroureteral stent PROCEDURE : 1. Ultrasound-guided puncture of the kidney. 2. Antegrade percutaneous pyelogram. 3. Percutaneous nephroureteral stent placement. 4. Conscious sedation with continuous EKG and oximetry monitoring. The risks, benefits and alternatives to the procedure were explained and verbal and written consent w as obtained. The site was prepped in sterile fashion. Full sterile technique was used, including ca p, mask, sterile gloves and gown and a large sterile sheet. Hand hygiene and 2% chlorhexidine and/or betadine/alcohol prep was utilized per protocol for cutaneous antisepsis. Sterile gel and sterile p robe cover were utilized for ultrasound guidance. The skin and subcutaneous tissues were infiltrated with local anesthetic solution. With ultrasound and fluoroscopic guidance the selected kidney was punctured and a percutaneous antegr eliel pyelogram was performed demonstrating a dilated collecting system. Serial dilatation was perform ed and the prescribed nephroureteral stent was placed with the proximal portion within the renal pelv is and the distal extent in the urinary bladder. Injection of positive contrast demonstrates good po sition of the catheter. The nephrostogram demonstrates a stricture at the junction of the distal ureter and the anastomosis w ith the ileal loop. Conscious sedation was performed with the prescribed dosages and duration as above in the presence of an independent trained radiology nurse to assist in the monitoring of the patient. EKG and oximetry remained stable throughout the procedure. The patient tolerated the procedure well and there were n o complications. The patient was sent to post anesthesia recovery in stable condition. CONCLUSION: Uncomplicated nephroureteral stent placement as above. 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 Turetsky, MD on January 19, 2017 at 15:28 Board Certified Radiologist. This report was verified electronically.
[2017-01-19] MEDS: MORPHINE SULFATE 4 MG/ML INJ IV PRN (18:15)
[2017-01-20 00:07] VITALS: BP 83/48; PULSE 94; RESP 18; TEMP 99.4; O2SAT 96
[2017-01-20] MEDS: MORPHINE SULFATE 4 MG/ML INJ IV PRN (02:57)
[2017-01-20 04:00] VITALS: BP 83/49; PULSE 96; RESP 18; TEMP 98.1; O2SAT 96
[2017-01-20] MEDS: SODIUM BICARBONATE 650 MG TAB PO SCH ×3 (05:35→22:57)
[2017-01-20] MEDS: SODIUM BICARBONATE 8.4% INJ 50 MEQ in SODIUM CHLOR 0.9% 1000 ML INJ 1,000 ML IV SCH (05:35)
[2017-01-20] MEDS: TIOTROPIUM BROMIDE 18 MCG INH INH SCH (09:05)
[2017-01-20] MEDS: SODIUM CHLORIDE 0.9% FLUSH 10 ML FLUSH IV FLUSH SCH ×2 (09:05→22:55)
[2017-01-20] MEDS: MULTIVITAMINS/MINERALS THERAPEUTIC TAB PO SCH (09:06)
[2017-01-20] MEDS: CIPROFLOXACIN 250 MG TAB PO SCH ×2 (09:06→22:56)
[2017-01-20] MEDS: FERROUS SULFATE 325 MG (65 MG ELEMENTAL IRON) TAB PO SCH ×3 (09:06→17:45)
[2017-01-20] MEDS: DOCUSATE SODIUM 50 MG/SENNA 8.6 MG TAB PO SCH ×2 (09:06→22:56)
[2017-01-20] MEDS: ACETAMINOPHEN/HYDROcodone 325 MG/10 MG TAB PO SCH ×2 (09:06→22:56)
[2017-01-20] MEDS: PANTOPRAZOLE SOD 40 MG DELAYED RELEASE TAB PO SCH ×2 (09:06→22:56)
[2017-01-20] MEDS: NABUMETONE 500 MG TAB PO SCH ×2 (09:07→22:57)
[2017-01-20] MEDS: REMOVE OLD PATCH T-DERMAL SCH (09:07)
[2017-01-20] MEDS: NICOTINE 21 MG/24 HR PATCH T-DERMAL SCH (09:07)
[2017-01-20 09:08] VITALS: BP 93/52; PULSE 90; RESP 16; TEMP 98; O2SAT 95
--- NOTE | 2017-01-20 09:18 | HHI.PR ---
Subjective Subjective Remarks Resting in the bed, Positive for facial grimace States low back pain with spasms uncontrolled Alert answers questions appropriately (Judith Bah) Review of Systems Constitutional Constitutional: Fatigue, Weight Change (weight loss, states he used to weigh 180 pounds before getting sick), Weakness Constitutional Remarks 10 point ROS done positives noted (Judith Bah) Pulmonary Respiratory: Coughing (occasional cough, smoker) (Judith Bah) Genitourinary Genitourinary: Hematuria (dark diaz per urostomy bag, left side) (Judith Bah) Musculoskeletal MS: Weakness, Stiffness, Discomfort/Pain (Judith Bah) Psychiatric Psychiatric: Anxiety (Judith Bah) Vitals/Results Vital Signs Vital Signs Date Time Temp Pulse Resp B/P (MAP) Pulse Ox O2 Delivery O2 Flow Rate FiO2 01/20/17 04:00 98.1 96 18 83/49 (60) 96 01/20/17 00:07 99.4 94 18 83/48 (60) 96 01/19/17 20:00 99.3 87 18 89/53 (65) 100 01/19/17 17:08 98.0 80 18 114/56 (75) 100 01/19/17 15:45 61 18 125/76 (92) 99 01/19/17 15:15 63 18 125/72 (89) 99 01/19/17 15:00 64 20 108/66 (80) 100 01/19/17 12:22 98.0 65 17 81/51 (61) 99 (Judith Bah) CBC/BMP: 01/18/17 1110 01/18/17 1110 Imaging Remarks Last Impressions Drainage Catheter Insertion 01/19/17 0000 Signed Impressions: Service Date/Time: Thursday, January 19, 2017 13:54 - CONCLUSION: Uncomplicated nephroureteral stent placement as above. Stricture is present at the anastomotic junction Beau Burris MD Abdomen/Pelvis CT 01/17/17 0000 Signed Impressions: Service Date/Time: Tuesday, January 17, 2017 14:33 - CONCLUSION: 1. Severe left hydronephrosis and bilateral nephrolithiasis, nonobstructing identified. 2. Chronic pancreatic calcifications and not mentioned above are numerous varices in the periesophageal, gastric and left upper quadrant. Heath Charles MD Current Medications Administered Medications Medications (Trade) Dose Ordered Sig/Jose Elias Route PRN Reason Start Time Stop Time Status Last Admin Dose Admin Ferrous Sulfate (Ferrous Sulfate) 325 mg TID PO 01/17/17 18:00 01/19/17 17:05 Multivitamins/ Minerals Therapeutic (Theragran M Tab) 1 tab DAILY PO 01/18/17 09:00 01/19/17 09:07 Nabumetone (Relafen) 500 mg BID PO 01/17/17 21:00 01/19/17 21:14 Tizanidine HCl (Zanaflex) 2 mg TID PO 01/17/17 18:00 01/19/17 17:05 Sodium Chloride (NS Flush) 2 ml BID IV FLUSH 01/17/17 21:00 01/19/17 21:13 Senna/Docusate Sodium (Jael-Colace) 1 tab BID PO 01/17/17 21:00 01/19/17 21:14 Pantoprazole Sodium (Protonix) 40 mg Q12HR PO 01/17/17 21:00 01/19/17 21:14 Sodium Bicarbonate 50 meq/Sodium Chloride 1,050 ml @ 75 mls/hr Q14H IV 01/18/17 14:00 01/20/17 05:35 Nicotine (Habitrol 21 Mg Patch.24 Hr) 1 patch DAILY T-DERMAL 01/18/17 16:00 01/19/17 09:09 Miscellaneous Information 1 DAILY T-DERMAL 01/19/17 09:00 01/19/17 09:09 Sodium Bicarbonate (Sodium Bicarbonate) 650 mg Q8HR PO 01/18/17 16:00 01/20/17 05:35 Ciprofloxacin (Cipro) 250 mg Q12HR PO 01/18/17 21:00 01/19/17 21:13 Acetaminophen/ Hydrocodone Bitart ([place] 10-325 Mg) 1 tab BID PO 01/19/17 09:00 01/19/17 21:14 Morphine Sulfate (Morphine Inj) 2 mg Q4H PRN IV PAIN SCALE 8 TO 10 01/19/17 18:00 01/20/17 02:57 (Mitchell,Judith M. CASING OPERATOR) Physical Exam General General Appearance: No Acute Distress, Comfortable, Anxious Appearance Remarks Thin, frail, orbital's sunken (Judith Bah M. CASING OPERATOR) Eyes Eye Exam: Pupils Equal, Pupils Reactive (Judith Bah M. CASING OPERATOR) Ears & Nose Ears & Nose Exam: Nasal Mucosa [place] (pale) (Judith Bah M. CASING OPERATOR) Throat Throat Exam: Oral Mucosa [place] & Moist (pale) (Judith Bah M. CASING OPERATOR) Neck Neck Exam: Neck Supple, Trachea Midline (Judith Bah M. CASING OPERATOR) Pulmonary Resp Exam: Breath Sounds Equal, Sputum (occasional cough patient is smoker), Decreased Bases, Diminished Breath Sounds (Judith Bah M. CASING OPERATOR) Cardiology CV Exam: Regular (Judith Bah. CASING OPERATOR) Gastrointestinal/Abdomen GI Exam: Soft, Non-Tender, Bowel Sounds Present, Non-Distended GI Remarks Flat abdomen (Judith Bah M. CASING OPERATOR) Genitourinary Remarks Dark diaz, lower back pain and flank pain (Judith Bah M. CASING OPERATOR) Musculoskeletal MS Exam: Joints Intact (Judith Bah M. CASING OPERATOR) Integumentary Skin Exam: Warm, Dry (Judith Bah M. CASING OPERATOR) Extremeties Extremities Exam: No Edema, Pedal Pulses Palpable (Judith Bah M. CASING OPERATOR) Neurologic Neuro Exam: Alert, Awake, Oriented, Speech Clear, No Focal Deficits (Judith Bah M. CASING OPERATOR) Psychiatric Psych Exam: Appropriate Responses (Judith Bah. CASING OPERATOR) VTE Prophylaxis VTE Prophylaxis Device: SCDs (Judith Bah M. CASING OPERATOR) PUD Prophylasis PUD Prophylaxis: Protonix (Olvin,Susan M. CASING OPERATOR) Assessment/Plan Problem List: (1) HEATHER (acute kidney injury) ICD Codes: N17.9 - Acute kidney failure, unspecified Status: Acute (2) Nausea & vomiting ICD Codes: R11.2 - Nausea with vomiting, unspecified Status: Acute (3) Metabolic acidosis ICD Codes: E87.2 - Acidosis Status: Acute (4) Hydronephrosis ICD Codes: N13.30 - Unspecified hydronephrosis Status: Acute (5) Hematochezia ICD Codes: K92.1 - Melena Status: Acute (6) Hx of bladder cancer ICD Codes: Z85.51 - Personal history of malignant neoplasm of bladder Status: Chronic (7) UTI (urinary tract infection) ICD Codes: N39.0 - UTI (urinary tract infection) Status: Acute (8) Tobacco abuse ICD Codes: Z72.0 - Tobacco abuse Status: Chronic (9) Anemia ICD Codes: D64.9 - Anemia Status: Chronic (10) COPD (chronic obstructive pulmonary disease) ICD Codes: J44.9 - Chronic obstructive pulmonary disease, unspecified Status: Chronic (11) H/O total cystectomy ICD Codes: Z98.890 - Other specified postprocedural states Status: Chronic (12) Pancreatitis ICD Codes: K85.90 - Acute pancreatitis without necrosis or infection, unspecified Status: Chronic (13) Hx of hepatitis C ICD Codes: Z86.19 - Personal history of other infectious and parasitic diseases Status: Chronic (14) History of lung cancer ICD Codes: Z85.118 - History of lung cancer Status: Chronic Assessment/Plan Vital signs reviewed, patient has low BP trends, denies any dizziness states this is his norm, afebrile Labs reviewed, bowel regimen reviewed, states normal BM yesterday, hemoglobin stable Recheck labs in the morning Initial admission , Upper GI bleed with anemia, stable appreciate GI input and plan a care -S/P EGD 01/17 No sign of active bleeding, no old blood or coffee ground emesis/ Gastropathy/Mild gastritis/Mild esophagitis Medical management, PPI Monitor labs HEATHER Metabolic acidosis per labs NS + sodium bicarb at 75/hr, and by mouth bicarbonate Urostomy tube draining, dark urine adequate amounts monitor renal function Hx bladder cancer, had cystectomy and urostomy Left hydronephrosis and bilat nephrolithiasis , now has left nephrostomy tube Urostomy consult and plan a care appreciate medical management Patient continues to have low back pain with some apparent spasms, uncontrolled pain According to urology, will need left percutaneous nephrolithotomy along with right-sided extracorporeal shockwave lithotripsy to eradicate bilateral stones. COPD, stable Patient continues to smoke, and coverage didn't educated for abstinence but he states he quit drinking alcohol, one thing at a time UTI -UC + Escherichia coli and Morganella morganii Medical management , Cipro 250 mg po bid SCDs for DVT prophylaxis PPI for GI prophylaxis Patient discussed his wishes of pain management and control, states that he has a female friend who is on hospice and has pain management. States he has a living will at the facility. States if his heart stops or his breathing stops he does not want heroic measures which includes CPR or ventilator management. Otherwise he would like aggressive care now if it helps his quality of life. We 'll consult palliative care for their support and expert opinion, change CODE STATUS to DO NOT RESUSCITATE per patient's wishes. Will attempt to get a copy of patient's living will or advanced directive from [facility]. Discharge planning when patient's medically stable and input from consulting physicians. Possible a.m., patient doesn't feel like he will be able to go today secondary to his pain D/W RN, D/W Dr. Romero, seen on his behalf D/W pt (Judith Bah) Assessment/Plan seen, examined by myself, Dr Romero, today Discussed with patient Left nephrostomy tube draining without problems No evidence of any more gastrointestinal bleeding Non- anion gap metabolic acidosis looks better with sodium bicarbonate replacement, continue Discharge to [facility] tomorrow Palliative care seeing patient, he will be a good candidate for hospice care, he is now DNR Discussed with mid level provider The exam, history, and the medical decision-making described in the above note were completed with the assistance of the mid-level provider. I reviewed the findings presented. I attest that I had a [id number] encounter with the patient on the same day, and personally performed and documented my assessment and findings in the medical record. (Garcia Romero MD) Problem Qualifiers (1) Nausea & vomiting: Qualified Codes: K92.0 - Hematemesis; R11.0 - Nausea (2) UTI (urinary tract infection): Qualified Codes: N39.0 - Urinary tract infection, site not specified (3) Anemia: Qualified Codes: D64.9 - Anemia, unspecified (4) COPD (chronic obstructive pulmonary disease): Qualified Codes: J44.9 - Chronic obstructive pulmonary disease, unspecified (5) Pancreatitis: Qualified Codes: K86.1 - Other chronic pancreatitis Judith Bah Jan 20, 2017 09:18 Garcia Romero MD Jan 20, 2017 16:47
--- NOTE | 2017-01-20 09:46 | HHI.PR ---
Subjective Patient symptoms today Pt seen and examined. Some pain from PCNT placement yesterday. Desires to go back to [place]. Objective Vital Signs Vital Signs Date Time Temp Pulse Resp B/P (MAP) Pulse Ox O2 Delivery O2 Flow Rate FiO2 01/20/17 09:08 98.0 90 16 93/52 (66) 95 01/20/17 04:00 98.1 96 18 83/49 (60) 96 01/20/17 00:07 99.4 94 18 83/48 (60) 96 01/19/17 20:00 99.3 87 18 89/53 (65) 100 01/19/17 17:08 98.0 80 18 114/56 (75) 100 01/19/17 15:45 61 18 125/76 (92) 99 01/19/17 15:15 63 18 125/72 (89) 99 01/19/17 15:00 64 20 108/66 (80) 100 01/19/17 12:22 98.0 65 17 81/51 (61) 99 Intake & Output 01/20/17 01/20/17 07:00 19:00 Output Total 300 ml 500 ml Balance -300 ml -500 ml Drainage Total 300 ml 500 ml Result Diagram: 01/18/17 1110 01/18/17 1110 Objective Remarks Abd:soft,nt,nf Ileal conduit with sediment Left PNCT: diaz urine Medications and IVs Current Medications Medications (Trade) Dose Ordered Sig/Jose Elias Route Start Time Stop Time Status Last Admin (Proair Hfa Inh) 1 puff QID PRN INH 01/17/17 16:00 (Ferrous Sulfate) 325 mg TID PO 01/17/17 18:00 01/20/17 09:06 (Imodium) 4 mg Q4H PRN PO 01/17/17 16:00 (Theragran M Tab) 1 tab DAILY PO 01/18/17 09:00 01/20/17 09:06 (Relafen) 500 mg BID PO 01/17/17 21:00 01/20/17 09:07 (Spiriva Inh) 18 mcg DAILY INH 01/18/17 09:00 (Zanaflex) 2 mg TID PO 01/17/17 18:00 01/20/17 09:06 (Zofran Odt) 4 mg Q12H PRN PO 01/17/17 16:30 (NS Flush) 2 ml UNSCH PRN IV FLUSH 01/17/17 16:15 (NS Flush) 2 ml BID IV FLUSH 01/17/17 21:00 01/19/17 21:13 (Zofran Inj) 4 mg Q6H PRN IVP 01/17/17 16:15 (Narcan Inj) 0.4 mg UNSCH PRN IV PUSH 01/17/17 16:15 (Jael-Colace) 1 tab BID PO 01/17/17 21:00 01/20/17 09:06 (Milk Of Magnesia Liq) 30 ml Q12H PRN PO 01/17/17 16:15 (Senokot) 17.2 mg Q12H PRN PO 01/17/17 16:15 (Dulcolax Supp) 10 mg DAILY PRN RECTAL 01/17/17 16:15 (Lactulose Liq) 30 ml DAILY PRN PO 01/17/17 16:15 (Pill Splitter) 1 ea UNSCH PRN OTHER 01/17/17 16:30 (Protonix) 40 mg Q12HR PO 01/17/17 21:00 01/20/17 09:06 Sodium Bicarbonate 50 meq/Sodium Chloride 1,050 ml @ 75 mls/hr Q14H IV 01/18/17 14:00 01/20/17 05:35 (Habitrol 21 Mg Patch.24 Hr) 1 patch DAILY T-DERMAL 01/18/17 16:00 01/20/17 09:07 Miscellaneous Information 1 DAILY T-DERMAL 01/19/17 09:00 01/20/17 09:07 (Sodium Bicarbonate) 650 mg Q8HR PO 01/18/17 16:00 01/20/17 05:35 (Cipro) 250 mg Q12HR PO 01/18/17 21:00 01/20/17 09:06 ([place] 10-325 Mg) 1 tab BID PO 01/19/17 09:00 01/20/17 09:06 (Morphine Inj) 2 mg Q4H PRN IV 01/19/17 18:00 01/20/17 02:57 Assessment and Plan Assessment and Plan 56 y.o male with h/o bladder cancer s/p ileal conduit with left PCNT with stent placed yesterday due to stones and ureteral conduit stricture Stable to go back to [place] Will need to have left PCNL with dilatation of anastamotic stricture in the future as an outpt. Fish Tucker DO Jan 20, 2017 09:46
[2017-01-20 09:53] LABS: HEMATOCRIT 26.7 % (39.0-51.0); MEAN CELL VOLUME 89.5 FL (80.0-100.0); MEAN CORPUSCULAR HEMOGLOBIN 29.8 PG (27.0-34.0); MEAN CORPUSCULAR HGB CONC 33.3 % (32.0-36.0); PLATELET COUNT 223 TH/MM3 (150-450); RED BLOOD COUNT 2.98 MIL/MM3 (4.50-5.90); RED CELL DISTRIBUTION WIDTH 17.8 % (11.6-17.2); REVIEW FLAG FINAL; WHITE BLOOD COUNT 9.8 TH/MM3 (4.0-11.0)
[2017-01-20 10:17] LABS: BICARBONATE 19.5 MEQ/L (21.0-32.0); MAGNESIUM 1.8 MG/DL (1.5-2.5); POTASSIUM 3.6 MEQ/L (3.5-5.1)
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
[2017-01-20 12:52] VITALS: BP 88/52; PULSE 73; RESP 16; TEMP 97.2; O2SAT 97
[2017-01-20] MEDS: MORPHINE SULFATE 15 MG CONTROLLED RELEASE TAB PO SCH ×2 (14:10→22:56)
[2017-01-20 16:37] VITALS: BP 98/54; PULSE 70; RESP 16; TEMP 97.3; O2SAT 99
[2017-01-20] MEDS: MIDODRINE 5 MG TAB PO SCH (17:44)
[2017-01-20 20:33] VITALS: BP 106/55; PULSE 65; RESP 18; TEMP 97.6; O2SAT 100
[2017-01-21 01:16] VITALS: BP 92/51; PULSE 71; RESP 16; TEMP 98.2; O2SAT 96
[2017-01-21 04:07] VITALS: BP 177/71; PULSE 79; RESP 16; TEMP 97.4; O2SAT 94
[2017-01-21] MEDS: MIDODRINE 5 MG TAB PO SCH ×3 (06:24→16:53)
[2017-01-21] MEDS: SODIUM BICARBONATE 650 MG TAB PO SCH ×2 (06:24→14:00)
[2017-01-21 07:21] LABS: HEMATOCRIT 30.7 % (39.0-51.0); MEAN CELL VOLUME 89.8 FL (80.0-100.0); MEAN CORPUSCULAR HGB CONC 33.4 % (32.0-36.0); PLATELET COUNT 243 TH/MM3 (150-450); RED BLOOD COUNT 3.42 MIL/MM3 (4.50-5.90); REVIEW FLAG FINAL
[2017-01-21 07:44] LABS: BICARBONATE 19.7 MEQ/L (21.0-32.0); POTASSIUM 3.9 MEQ/L (3.5-5.1)
[2017-01-21 08:12] VITALS: BP 109/57; PULSE 67; RESP 18; TEMP 97.8; O2SAT 100
[2017-01-21] MEDS: REMOVE OLD PATCH T-DERMAL SCH (09:00)
[2017-01-21] MEDS: FERROUS SULFATE 325 MG (65 MG ELEMENTAL IRON) TAB PO SCH ×2 (09:00→13:00)
[2017-01-21] MEDS: SODIUM CHLORIDE 0.9% FLUSH 10 ML FLUSH IV FLUSH SCH (09:00)
--- NOTE | 2017-01-21 09:17 | HHI.PR ---
Subjective Patient symptoms today Pt seen and examined. Feels better. Pain controlled. Objective Vital Signs Vital Signs Date Time Temp Pulse Resp B/P (MAP) Pulse Ox O2 Delivery O2 Flow Rate FiO2 01/21/17 08:12 97.8 67 18 109/57 (74) 100 01/21/17 04:07 97.4 79 16 177/71 (106) 94 01/21/17 01:16 98.2 71 16 92/51 (65) 96 01/20/17 20:33 97.6 65 18 106/55 (72) 100 01/20/17 16:37 97.3 70 16 98/54 (69) 99 01/20/17 12:52 97.2 73 16 88/52 (64) 97 Intake & Output 01/21/17 01/21/17 07:00 19:00 Output Total 1450 ml Balance -1450 ml Output Urine Total 300 ml Drainage Total 1150 ml Result Diagram: 01/21/17 0632 01/21/17 0632 Objective Remarks Abd:soft,nt,nf Ileal conduit with sediment Left PNCT: diaz urine 01/21 Abd:soft,nt,nf Ileal conduit with clear urine Left PNCT: clear urine Medications and IVs Current Medications Medications (Trade) Dose Ordered Sig/Jose Elias Route Start Time Stop Time Status Last Admin (Proair Hfa Inh) 1 puff QID PRN INH 01/17/17 16:00 (Ferrous Sulfate) 325 mg TID PO 01/17/17 18:00 01/20/17 17:45 (Imodium) 4 mg Q4H PRN PO 01/17/17 16:00 (Theragran M Tab) 1 tab DAILY PO 01/18/17 09:00 01/20/17 09:06 (Relafen) 500 mg BID PO 01/17/17 21:00 01/20/17 22:57 (Spiriva Inh) 18 mcg DAILY INH 01/18/17 09:00 (Zanaflex) 2 mg TID PO 01/17/17 18:00 01/20/17 17:45 (Zofran Odt) 4 mg Q12H PRN PO 01/17/17 16:30 (NS Flush) 2 ml UNSCH PRN IV FLUSH 01/17/17 16:15 (NS Flush) 2 ml BID IV FLUSH 01/17/17 21:00 01/20/17 22:55 (Zofran Inj) 4 mg Q6H PRN IVP 01/17/17 16:15 (Narcan Inj) 0.4 mg UNSCH PRN IV PUSH 01/17/17 16:15 (Jael-Colace) 1 tab BID PO 01/17/17 21:00 01/20/17 22:56 (Milk Of Magnesia Liq) 30 ml Q12H PRN PO 01/17/17 16:15 (Senokot) 17.2 mg Q12H PRN PO 01/17/17 16:15 (Dulcolax Supp) 10 mg DAILY PRN RECTAL 01/17/17 16:15 (Lactulose Liq) 30 ml DAILY PRN PO 01/17/17 16:15 (Pill Splitter) 1 ea UNSCH PRN OTHER 01/17/17 16:30 (Protonix) 40 mg Q12HR PO 01/17/17 21:00 01/20/17 22:56 (Habitrol 21 Mg Patch.24 Hr) 1 patch DAILY T-DERMAL 01/18/17 16:00 01/20/17 09:07 Miscellaneous Information 1 DAILY T-DERMAL 01/19/17 09:00 01/20/17 09:07 (Sodium Bicarbonate) 650 mg Q8HR PO 01/18/17 16:00 01/21/17 06:24 (Cipro) 250 mg Q12HR PO 01/18/17 21:00 01/20/17 22:56 ([place]ry 10-325 Mg) 1 tab BID PO 01/19/17 09:00 01/20/17 22:56 (Oramorph Sr) 15 mg Q12HR PO 01/20/17 14:00 01/20/17 22:56 (Proamatine) 5 mg TID@07,12,17 PO 01/20/17 17:00 01/21/17 06:24 Assessment and Plan Assessment and Plan 56 y.o male with h/o bladder cancer s/p ileal conduit with left PCNT with stent placed yesterday due to stones and ureteral conduit stricture Stable to go back to [place] Will need to have left PCNL with dilatation of anastamotic stricture in the future as an outpt. 01/21 56 y.o male with h/o bladder cancer s/p ileal conduit with left PCNT with stent placed yesterday due to stones and ureteral conduit stricture Stable to go back to [place] Will need to have left PCNL with dilatation of anastamotic stricture in the future as an outpt. Fish Tucker DO Jan 21, 2017 09:17
[2017-01-21] MEDS: ACETAMINOPHEN/HYDROcodone 325 MG/10 MG TAB PO SCH (09:53)
[2017-01-21] MEDS: NABUMETONE 500 MG TAB PO SCH (09:53)
[2017-01-21] MEDS: MORPHINE SULFATE 15 MG CONTROLLED RELEASE TAB PO SCH (09:53)
[2017-01-21] MEDS: MULTIVITAMINS/MINERALS THERAPEUTIC TAB PO SCH (09:53)
[2017-01-21] MEDS: CIPROFLOXACIN 250 MG TAB PO SCH (09:54)
[2017-01-21] MEDS: PANTOPRAZOLE SOD 40 MG DELAYED RELEASE TAB PO SCH (09:54)
[2017-01-21] MEDS: DOCUSATE SODIUM 50 MG/SENNA 8.6 MG TAB PO SCH (09:54)
[2017-01-21] MEDS: NICOTINE 21 MG/24 HR PATCH T-DERMAL SCH (09:55)
--- NOTE | 2017-01-21 10:38 | HHI.PR ---
Subjective Subjective Remarks sitting up in bed appears more comfortable no facial grimmace states he is leaving today (Judith Bah) Review of Systems Constitutional Constitutional: Fatigue (improved), Weight Change (weight loss, states he used to weigh 180 pounds before getting sick) Constitutional Remarks 10 point ROS done positives noted (Judith Bah) Genitourinary Genitourinary: Hematuria (dark diaz per urostomy bag, left side) Remarks Ileal conduit (Judith Bah) Musculoskeletal MS: Weakness, Discomfort/Pain (Judith Bah) Psychiatric Psychiatric: Anxiety (Judith Bah) Vitals/Results Intake & Output 01/21/17 01/21/17 01/22/17 15:00 23:00 07:00 Output Total 100 ml Balance -100 ml Drainage Total 100 ml Vital Signs Vital Signs Date Time Temp Pulse Resp B/P (MAP) Pulse Ox O2 Delivery O2 Flow Rate FiO2 01/21/17 08:12 97.8 67 18 109/57 (74) 100 01/21/17 04:07 97.4 79 16 177/71 (106) 94 01/21/17 01:16 98.2 71 16 92/51 (65) 96 01/20/17 20:33 97.6 65 18 106/55 (72) 100 01/20/17 16:37 97.3 70 16 98/54 (69) 99 01/20/17 12:52 97.2 73 16 88/52 (64) 97 (Judith Bah) CBC/BMP: 01/21/17 0632 01/21/17 0632 Lab Results Laboratory Tests Test 01/21/17 06:32 White Blood Count 7.0 TH/MM3 Red Blood Count 3.42 MIL/MM3 Hemoglobin 10.2 GM/DL Hematocrit 30.7 % Mean Corpuscular Volume 89.8 FL Mean Corpuscular Hemoglobin 30.0 PG Mean Corpuscular Hemoglobin Concent 33.4 % Red Cell Distribution Width 18.0 % Platelet Count 243 TH/MM3 Mean Platelet Volume 8.5 FL Blood Urea Nitrogen 27 MG/DL Creatinine 1.68 MG/DL Random Glucose 96 MG/DL Calcium Level 8.6 MG/DL Sodium Level 144 MEQ/L Potassium Level 3.9 MEQ/L Chloride Level 117 MEQ/L Carbon Dioxide Level 19.7 MEQ/L Anion Gap 7 MEQ/L Estimat Glomerular Filtration Rate 43 ML/MIN Current Medications Administered Medications Medications (Trade) Dose Ordered Sig/Jose Elias Route PRN Reason Start Time Stop Time Status Last Admin Dose Admin Ferrous Sulfate (Ferrous Sulfate) 325 mg TID PO 01/17/17 18:00 01/20/17 17:45 Multivitamins/ Minerals Therapeutic (Theragran M Tab) 1 tab DAILY PO 01/18/17 09:00 01/21/17 09:53 Nabumetone (Relafen) 500 mg BID PO 01/17/17 21:00 01/21/17 09:53 Tizanidine HCl (Zanaflex) 2 mg TID PO 01/17/17 18:00 01/21/17 09:55 Sodium Chloride (NS Flush) 2 ml BID IV FLUSH 01/17/17 21:00 01/20/17 22:55 Senna/Docusate Sodium (Jael-Colace) 1 tab BID PO 01/17/17 21:00 01/21/17 09:54 Pantoprazole Sodium (Protonix) 40 mg Q12HR PO 01/17/17 21:00 01/21/17 09:54 Nicotine (Habitrol 21 Mg Patch.24 Hr) 1 patch DAILY T-DERMAL 01/18/17 16:00 01/21/17 09:55 Miscellaneous Information 1 DAILY T-DERMAL 01/19/17 09:00 01/20/17 09:07 Sodium Bicarbonate (Sodium Bicarbonate) 650 mg Q8HR PO 01/18/17 16:00 01/21/17 06:24 Ciprofloxacin (Cipro) 250 mg Q12HR PO 01/18/17 21:00 01/21/17 09:54 Acetaminophen/ Hydrocodone Bitart ([place] 10-325 Mg) 1 tab BID PO 01/19/17 09:00 01/21/17 09:53 Morphine Sulfate (Oramorph Sr) 15 mg Q12HR PO 01/20/17 14:00 01/21/17 09:53 Midodrine (Proamatine) 5 mg TID@,12,17 PO 01/20/17 17:00 01/21/17 06:24 ([place],Judith M. SHIRT FINISHER) Physical Exam General General Appearance: No Acute Distress, Comfortable, Anxious Appearance Remarks Thin, frail, orbital's sunken (Judith Bah M. SHIRT FINISHER) Eyes Eye Exam: Pupils Equal, Pupils Reactive (Judith Bah M. SHIRT FINISHER) Ears & Nose Ears & Nose Exam: Nasal Mucosa Nada (pale) (Olvin,Judith M. SHIRT FINISHER) Throat Throat Exam: Oral Mucosa Nada & Moist (pale) ([place] HillJudith conner M. SHIRT FINISHER) Neck Neck Exam: Neck Supple, Trachea Midline ([place] HillJudith conner M. SHIRT FINISHER) Pulmonary Resp Exam: Diminished Breath Sounds (Jessenia Bahan M. SHIRT FINISHER) Cardiology CV Exam: Regular (Olvin,Susan M. SHIRT FINISHER) Gastrointestinal/Abdomen GI Exam: Soft, Non-Tender, Bowel Sounds Present, Non-Distended GI Remarks Flat abdomen (Olvin,Judith M. SHIRT FINISHER) Genitourinary Remarks lt. neprostomy tube, drain as needed. (Olvin,Susan M. SHIRT FINISHER) Musculoskeletal MS Exam: Joints Intact (OlvinJudith conner M. SHIRT FINISHER) Integumentary Skin Exam: Warm, Dry (Judith Bah M. SHIRT FINISHER) Extremeties Extremities Exam: No Edema, Pedal Pulses Palpable (Jessenia Bahan M. SHIRT FINISHER) Neurologic Neuro Exam: Alert, Awake, Oriented, Speech Clear, No Focal Deficits ([place] HillJessenia conneran M. SHIRT FINISHER) Psychiatric Psych Exam: Appropriate Responses (Judith Bah M. SHIRT FINISHER) VTE Prophylaxis VTE Prophylaxis Device: SCDs (Olvin,Susan M. SHIRT FINISHER) PUD Prophylasis PUD Prophylaxis: Protonix (OlvinJudith M. SHIRT FINISHER) Assessment/Plan Problem List: (1) HEATHER (acute kidney injury) ICD Codes: N17.9 - Acute kidney failure, unspecified Status: Acute (2) Nausea & vomiting ICD Codes: R11.2 - Nausea with vomiting, unspecified Status: Acute (3) Metabolic acidosis ICD Codes: E87.2 - Acidosis Status: Acute (4) Hydronephrosis ICD Codes: N13.30 - Unspecified hydronephrosis Status: Acute (5) Hematochezia ICD Codes: K92.1 - Melena Status: Acute (6) Hx of bladder cancer ICD Codes: Z85.51 - Personal history of malignant neoplasm of bladder Status: Chronic (7) UTI (urinary tract infection) ICD Codes: N39.0 - UTI (urinary tract infection) Status: Acute (8) Tobacco abuse ICD Codes: Z72.0 - Tobacco abuse Status: Chronic (9) Anemia ICD Codes: D64.9 - Anemia Status: Chronic (10) COPD (chronic obstructive pulmonary disease) ICD Codes: J44.9 - Chronic obstructive pulmonary disease, unspecified Status: Chronic (11) H/O total cystectomy ICD Codes: Z98.890 - Other specified postprocedural states Status: Chronic (12) Pancreatitis ICD Codes: K85.90 - Acute pancreatitis without necrosis or infection, unspecified Status: Chronic (13) Hx of hepatitis C ICD Codes: Z86.19 - Personal history of other infectious and parasitic diseases Status: Chronic (14) History of lung cancer ICD Codes: Z85.118 - History of lung cancer Status: Chronic Assessment/Plan Initial admission , Upper GI bleed with anemia, stable appreciate GI input and plan a care -S/P EGD 01/17 No sign of active bleeding, no old blood or coffee ground emesis/ Gastropathy/Mild gastritis/Mild esophagitis Medical management, continue PPI if pt. needs HEATHER, with CKD, probable at his baseline now. No acute lab changes. Metabolic acidosis treated IVF off, Ileal conduit clamped and empty as needed. Hx bladder cancer, had cystectomy and urostomy Left hydronephrosis and bilat nephrolithiasis , now has lleal conduit tube Urostomy appreciate plan of care. Patient is free of pain, According to urology, will need left percutaneous nephrolithotomy along with right-sided extracorporeal shockwave lithotripsy to eradicate bilateral stones in the future if desired. COPD, stable Patient continues to smoke, and coverage didn't educated for abstinence but he states he quit drinking alcohol, one thing at a time UTI -UC + Escherichia coli and Morganella morganii Medical management , Cipro 250 mg po bid SCDs for DVT prophylaxis PPI for GI prophylaxis Patient discussed his wishes of pain management and control. States he has a living will at the facility. Palliative care meeting with patient yesterday. He is requesting pain management and Hospice , and to return to [place]. States he feels back to his normal and knows his health is declining. Previous weight 180 labs. Hospice consult per Palliative team. Patient states he is planning DC today. D/W RN, D/W Dr. Romero, seen on his behalf D/W pt (Judith Bah) Assessment/Plan seen, examined by myself, Dr Romero, today Discussed with patient Discharge to [facility] today Poor prognosis Follow with hospice at [facility] Continue with sodium bicarbonate pills for his renal tubular acidosis Follow-up with urology Discussed with mid level provider The exam, history, and the medical decision-making described in the above note were completed with the assistance of the mid-level provider. I reviewed the findings presented. I attest that I had a locl-my-pusz encounter with the patient on the same day, and personally performed and documented my assessment and findings in the medical record 40 minutes spent. (Garcia Romero MD) Problem Qualifiers (1) Nausea & vomiting: Qualified Codes: K92.0 - Hematemesis; R11.0 - Nausea (2) UTI (urinary tract infection): Qualified Codes: N39.0 - Urinary tract infection, site not specified (3) Anemia: Qualified Codes: D64.9 - Anemia, unspecified (4) COPD (chronic obstructive pulmonary disease): Qualified Codes: J44.9 - Chronic obstructive pulmonary disease, unspecified (5) Pancreatitis: Qualified Codes: K86.1 - Other chronic pancreatitis Judith Bah Jan 21, 2017 10:38 Garcia Romero MD Jan 21, 2017 14:30
[2017-01-21 11:48] VITALS: BP 100/52; PULSE 69; RESP 18; TEMP 98.1; O2SAT 100
[2017-01-21] MEDS ORDERED: SODI650T PO (14:27)
[2017-01-21] MEDS ORDERED: CIPR250T52 PO (14:27)
[2017-01-21] MEDS ORDERED: HYDR-3534 PO (14:27)
[2017-01-21 16:17] VITALS: BP 107/54; PULSE 61; RESP 18; TEMP 97.9; O2SAT 100
--- NOTE | 2017-01-21 16:43 | HHI.DS ---
Discharge Summary Admission Date Jan 17, 2017 at 16:13 Discharge Date: Jan 21, 2017 Admitting Diagnosis Severe Hydronephrosis, hematemesis Brief History This was a thin, borderline frail 56-year-old white male who was brought over to the emergency room via EMS with nausea and vomiting. According to the records it had been three days and the patient has noted some black tarry stools. He was out [place] [facility] [place] and had acute onset of nausea and vomiting. One of the staff members described as coffee ground and sent him over for an evaluation in the emergency room. According to the record he was due to have an endoscopy this week with his GI doctor. The patient had a urostomy which is functioning properly according to him. He was alert and oriented, slightly agitated. He was taken down to the GI lab and scoped. No active bleed was found. Biopsy results pending. CBC/BMP: 01/21/17 0632 01/21/17 0632 Significant Findings Laboratory Tests Test 01/20/17 08:44 01/21/17 06:32 Red Blood Count 2.98 MIL/MM3 (4.50-5.90) 3.42 MIL/MM3 (4.50-5.90) Hemoglobin 8.9 GM/DL (13.0-17.0) 10.2 GM/DL (13.0-17.0) Hematocrit 26.7 % (39.0-51.0) 30.7 % (39.0-51.0) Red Cell Distribution Width 17.8 % (11.6-17.2) 18.0 % (11.6-17.2) Blood Urea Nitrogen 27 MG/DL (7-18) 27 MG/DL (7-18) Creatinine 1.55 MG/DL (0.60-1.30) 1.68 MG/DL (0.60-1.30) Calcium Level 8.0 MG/DL (8.5-10.1) Chloride Level 121 MEQ/L (98-107) 117 MEQ/L (98-107) Carbon Dioxide Level 19.5 MEQ/L (21.0-32.0) 19.7 MEQ/L (21.0-32.0) Estimat Glomerular Filtration Rate 47 ML/MIN (>89) 43 ML/MIN (>89) Imaging Last Impressions Drainage Catheter Insertion 01/19/17 0000 Signed Impressions: Service Date/Time: Thursday, January 19, 2017 13:54 - CONCLUSION: Uncomplicated nephroureteral stent placement as above. Stricture is present at the anastomotic junction Beau Burris MD Abdomen/Pelvis CT 01/17/17 0000 Signed Impressions: Service Date/Time: Tuesday, January 17, 2017 14:33 - CONCLUSION: 1. Severe left hydronephrosis and bilateral nephrolithiasis, nonobstructing identified. 2. Chronic pancreatic calcifications and not mentioned above are numerous varices in the periesophageal, gastric and left upper quadrant. Heath Charles MD PE at Discharge General General Appearance: No Acute Distress, Comfortable, Anxious Appearance Remarks Thin, frail, orbital's sunken Eyes Eye Exam: Pupils Equal, Pupils Reactive Ears & Nose Ears & Nose Exam: Nasal Mucosa [place] (pale) Throat Throat Exam: Oral Mucosa [place] & Moist (pale) Neck Neck Exam: Neck Supple, Trachea Midline Pulmonary Resp Exam: Diminished Breath Sounds Cardiology CV Exam: Regular Gastrointestinal/Abdomen GI Exam: Soft, Non-Tender, Bowel Sounds Present, Non-Distended GI Remarks Flat abdomen Genitourinary Remarks lt. neprostomy tube, drain as needed. Musculoskeletal MS Exam: Joints Intact Integumentary Skin Exam: Warm, Dry Extremeties Extremities Exam: No Edema, Pedal Pulses Palpable Neurologic Neuro Exam: Alert, Awake, Oriented, Speech Clear, No Focal Deficits Psychiatric Psych Exam: Appropriate Responses VTE Prophylaxis VTE Prophylaxis Device: SCDs PUD Prophylasis PUD Prophylaxis: Protonix Hospital Course These are the diagnoses that were used to treat this patient during this hospital stay. Consults included urology, gastroenterology, palliative care team ,and hospitalist to manage his admission and discharge Vital signs were monitored every 4 and as needed during the complete hospital stay. Multiple labs were drawn to manage patient's hemoglobin, monitor for any acute bleeding, monitor his chronic renal disease, and to monitor for any infection. Initial admission , Upper GI bleed with anemia, stable appreciate GI input and plan a care -S/P EGD 01/17 No sign of active bleeding, no old blood or coffee ground emesis/ Gastropathy/Mild gastritis/Mild esophagitis Medical management, continue PPI if pt. needs HEATHER, with CKD, probable at his baseline now. No acute lab changes. Metabolic acidosis treated IVF off, Ileal conduit clamped and empty as needed. Hx bladder cancer, had cystectomy and urostomy Left hydronephrosis and bilat nephrolithiasis , now has lleal conduit tube Urostomy appreciate plan of care. Patient is free of pain, According to urology, will need left percutaneous nephrolithotomy along with right-sided extracorporeal shockwave lithotripsy to eradicate bilateral stones in the future if desired. COPD, stable Patient continues to smoke, and coverage didn't educated for abstinence but he states he quit drinking alcohol, one thing at a time UTI -UC + Escherichia coli and Morganella morganii Medical management , Cipro 250 mg po bid SCDs for DVT prophylaxis PPI for GI prophylaxis Patient discussed his wishes of pain management and control. States he has a living will at the facility. Palliative care meeting with patient yesterday. He was requesting pain management and Hospice , and to return to [facility]. States he feels back to his normal and knows his health is declining. Previous weight 180 labs. Hospice consult per Palliative team. Patient states he is planning DC today. Working with case management to assist with his care Patient was seen, examined by myself, Dr Romero, today Discussed with patient [facility]charge to [facility] Poor prognosis [facility] Continue with sodium bicarbonate pills for his renal tubular acidosis Follow-up with urology Discussed with mid level provider Pt Condition on Discharge: Guarded Discharge Disposition: Discharge to SNF Discharge Instructions DIET: Follow Instructions for: As Tolerated, No Restrictions Activities you can perform: Weight Bearing as Fani Other Activity Instructions: Has a nephrostomy tube left flank, keep clean Follow up Referrals: Urology - 1 Week with Timothy Valencia MD New Medications: Ciprofloxacin (Cipro) 250 Mg Tab 250 MG PO Q12HR for infection MDD 2 for 14 Days, #28 TAB Use as directed Sodium Bicarbonate (Sodium Bicarbonate) 650 Mg Tab 650 MG PO Q8HR for metabolic acidosis MDD 3 for 30 Days, #90 TAB 6 Refills as directed Changed Medications: Hydrocodone-Acetaminophen (Lortab) 7.5-325 Mg Tab 1 TAB PO BID for Pain Management MDD 2 for 30 Days, #60 TAB 0 Refills ( Medication details modified) as directed Continued Medications: Acetaminophen (Mapap) 325 Mg Tab 650 MG PO Q4HR PRN for Pain/Discomfort/Temp >101, TAB 0 Refills Albuterol 8.5 GM Inh (Proair Hfa 8.5 GM Inh) 90 Mcg/Act Aer 1 PUFF INH QID PRN for SHORTNESS OF BREATH, #1 INHALER 0 Refills 108 mcg/actuation Ferrous Sulfate (Ferrous Sulfate) 325 Mg (65 Mg Iron) Tablet 325 MG PO TID for Nutritional Supplement, #30 TAB 0 Refills Loperamide (Loperamide) 2 Mg Cap 4 MG PO Initial Dose PRN for DIARRHEA, CAP 0 Refills After initial dose, give 1 cap (2mg) after each loose stool. Not to exceed 8 caps/24hrs Magnesium Hydroxide Liq (Milk of Magnesia Liq) 400 Mg/5 Ml Susp 30 ML PO Q4HR PRN for CONSTIPATION, #1 BOTTLE 0 Refills Multiple Vitamins W/ Minerals (Therems-M) 1 Tab Tab 1 TAB PO DAILY for Nutritional Supplement, TAB 0 Refills Nabumetone (Nabumetone) 500 Mg Tab 500 MG PO BID for Pain-Inflammation, #60 TAB 0 Refills Ondansetron (Zofran) 4 Mg Tab 4 MG PO Q12HR PRN for NAUSEA OR VOMITING, TAB 0 Refills Tiotropium Inh (Spiriva Handihaler) 18 Mcg Cap 18 MCG INH DAILY for COPD, #30 CAP 0 Refills 1 capsule = 18 mcg Tizanidine (Tizanidine) 2 Mg Tab 2 MG PO TID for Muscle Spasm, TAB 0 Refills Additional Information Administered Medications Medications (Trade) Dose Ordered Sig/Jose Elias Route PRN Reason Start Time Stop Time Status Last Admin Dose Admin Ferrous Sulfate (Ferrous Sulfate) 325 mg TID PO 01/17/17 18:00 01/21/17 13:00 Multivitamins/ Minerals Therapeutic (Theragran M Tab) 1 tab DAILY PO 01/18/17 09:00 01/21/17 09:53 Nabumetone (Relafen) 500 mg BID PO 01/17/17 21:00 01/21/17 09:53 Tizanidine HCl (Zanaflex) 2 mg TID PO 01/17/17 18:00 01/21/17 13:00 Sodium Chloride (NS Flush) 2 ml BID IV FLUSH 01/17/17 21:00 01/21/17 09:00 Senna/Docusate Sodium (Jael-Colace) 1 tab BID PO 01/17/17 21:00 01/21/17 09:54 Pantoprazole Sodium (Protonix) 40 mg Q12HR PO 01/17/17 21:00 01/21/17 09:54 Nicotine (Habitrol 21 Mg Patch.24 Hr) 1 patch DAILY T-DERMAL 01/18/17 16:00 01/21/17 09:55 Miscellaneous Information 1 DAILY T-DERMAL 01/19/17 09:00 01/21/17 09:00 Sodium Bicarbonate (Sodium Bicarbonate) 650 mg Q8HR PO 01/18/17 16:00 01/21/17 14:00 Ciprofloxacin (Cipro) 250 mg Q12HR PO 01/18/17 21:00 01/21/17 09:54 Acetaminophen/ Hydrocodone Bitart ([place] 10-325 Mg) 1 tab BID PO 01/19/17 09:00 01/21/17 09:53 Morphine Sulfate (Oramorph Sr) 15 mg Q12HR PO 01/20/17 14:00 01/21/17 09:53 Midodrine (Proamatine) 5 mg TID@,, PO 01/20/17 17:00 01/21/17 12:00 Judith Bah Jan 21, 2017 16:43
== END 2017-01-21 17:25 | DRG 378 ==
LOC: NEPC 12:10 → NEDA 16:13 → OBSVTOIN 16:13 → N05B 17:29
PROVIDERS: ADMIT Specialist; ATTEND Specialist
PROC: 0DB68ZX Excision of Stomach, Via Natural or Artificial Opening Endoscopic, Diagnostic (ICD-10-PCS; principal; 2017-01-17 16:00)
PROC: 0T9130Z Drainage of Left Kidney with Drainage Device, Percutaneous Approach (ICD-10-PCS; 2017-01-19)
PROC: 0T773DZ Dilation of Left Ureter with Intraluminal Device, Percutaneous Approach (ICD-10-PCS; 2017-01-19)
DX: K92.0 Hematemesis (principal); N17.9 Acute kidney failure, unspecified; R64 Cachexia; E87.2 Acidosis; K86.1 Other chronic pancreatitis; Z93.6 Other artificial openings of urinary tract status; Z68.1 Body mass index [BMI] 19.9 or less, adult; N39.0 Urinary tract infection, site not specified; N13.2 Hydronephrosis with renal and ureteral calculous obstruction; K92.1 Melena; I13.10 Hypertensive heart and chronic kidney disease without heart failure, with stage 1 through stage 4 chronic kidney disease, or unspecified chronic kidney disease; J44.9 Chronic obstructive pulmonary disease, unspecified; F17.210 Nicotine dependence, cigarettes, uncomplicated; K59.09 Other constipation; G89.29 Other chronic pain; F10.20 Alcohol dependence, uncomplicated; D64.9 Anemia, unspecified; K20.9 Esophagitis, unspecified; K29.70 Gastritis, unspecified, without bleeding; B96.20 Unspecified Escherichia coli [E. coli] as the cause of diseases classified elsewhere; Z66 Do not resuscitate; Z85.51 Personal history of malignant neoplasm of bladder; N18.9 Chronic kidney disease, unspecified; Z51.5 Encounter for palliative care
CPT/HCPCS: 36600; 50433; 74177; 80048; 80053; 81001; 82533; 82805; 82948; 83690; 83735; 85025; 85027; 85610; 85730; 86850; 86900; 86901; 87077; 87086; 87186; 88305; 88312; 94664; 96361; 96374; 99152; 99153; C1769; C1877; C1887; C1894; C9113; J2250; J2270; J3010; J7030; J7120; J7613; Q9967

== ENCOUNTER 2017-02-03 05:51 | Inpatient (IN) | payer OTHER ==
[~2017-02-03] VITALS: Ht 172.7 cm; Wt 56.4 kg
[~2017-02-03 05:51] MED LIST changes: +CIPR250T52 PO; -HYDR-3516 PO; +HYDR-3534 PO; -LIDOCAINE HCL 1% PF 5 ML AMPULE OTHER ONE; -MIDAZOLAM HCL 2 MG/2 ML VIAL IV ONE; +MILKSUS PO; -PROPOFOL 200 MG/20 ML AMP IV ONE; +SODI650T PO; +SPIRCAP INH; -TIOT1AER INH; -UMEC1AER INH
[2017-02-03] MEDS ORDERED: GENTAMICIN INJ 180 MG in SODIUM CHLORIDE 0.9% INJ 100 ML IV SCH (06:15)
[2017-02-03] MEDS ORDERED: SODIUM CHLORID 0.9% 500 ML IV PRN (06:30)
[2017-02-03] MEDS ORDERED: INSULIN HUMAN REGULAR 1,000 UNITS/10 ML VIAL SQ PRN (06:30)
[2017-02-03] MEDS ORDERED: LACTATED RINGER'S 1000 ML IV PRN (06:30)
[2017-02-03] MEDS ORDERED: METOPROLOL TARTRATE 25 MG TAB PO PRN (06:30)
[2017-02-03] MEDS ORDERED: CHLORHEXIDINE GLUCONATE 2 % 1 PACK (2 CLOTHS) TOPICAL PRN (06:30)
[2017-02-03] MEDS ORDERED: POVIDONE IODINE 5% (ANTISEPSIS KIT) 4 APPLICATIONS EACH NARE PRN (06:30)
[2017-02-03] MEDS ORDERED: MS C30TA5 PO (06:46)
[2017-02-03 07:03] LABS: AUTOMATED NEUTROPHIL # 7.2 TH/MM3 (1.8-7.7); BASOPHIL # 0.1 TH/MM3 (0-0.2); BASOPHIL % 1.2 % (0.0-2.0); EOSINOPHIL # 0.3 TH/MM3 (0-0.4); EOSINOPHIL % 2.5 % (0.0-4.0); HEMATOCRIT 35.7 % (39.0-51.0); HEMO FLAGS DIFF FINAL; LYMPHOCYTE # 1.7 TH/MM3 (1.0-4.8); MEAN CELL VOLUME 89.8 FL (80.0-100.0); MEAN CORPUSCULAR HEMOGLOBIN 29.1 PG (27.0-34.0); MEAN CORPUSCULAR HGB CONC 32.4 % (32.0-36.0); MONO % 7.8 % (0.0-8.0); NEUT % 71.5 % (16.0-70.0); PLATELET COUNT 457 TH/MM3 (150-450); RED BLOOD COUNT 3.98 MIL/MM3 (4.50-5.90); RED CELL DISTRIBUTION WIDTH 16.5 % (11.6-17.2); WHITE BLOOD COUNT 10.1 TH/MM3 (4.0-11.0)
[2017-02-03] MEDS ORDERED: VANCOMYCIN HCL 1000 MG VIAL ONE (07:07)
[2017-02-03] MEDS ORDERED: SODIUM CHLOR 0.9% 250 ML INJ 250 ML ONE ×2 (07:07→07:10)
[2017-02-03] MEDS ORDERED: FUROSEMIDE 40 MG/4 ML VIAL ONE (07:12)
[2017-02-03 07:23] LABS: BICARBONATE 18.4 MEQ/L (21.0-32.0)
[2017-02-03] MEDS ORDERED: ACETAMINOPHEN 1000 MG/100 ML 100 ML IV ONE (07:26)
[2017-02-03 07:27] LABS: POTASSIUM 4.7 MEQ/L (3.5-5.1)
[2017-02-03] MEDS ORDERED: VANCOMYCIN HCL 1000 MG ON-CALL/NS 250 ML IV SCH ×2 (07:45)
[2017-02-03] MEDS ORDERED: HYDROmorphone HCL PF 2 MG/ML VIAL ONE (07:47)
[2017-02-03] MEDS ORDERED: IOHEXOL 350 MG/ML 50 ML BTL (for RAD DIAG) OTHER ONE (10:29)
[2017-02-03] MEDS ORDERED: LORazepam 2 MG/ML VIAL ONE (11:16)
--- NOTE | 2017-02-03 11:37 | RADRPT ---
EXAM DATE/TIME: 02/03/2017 09:02 [facility] COMPARISON: CT ABDOMEN & PELVIS W CONTRAST, January 17, 2017, 14:33. INDICATIONS : Left kidney stones 15.36 minutes 7 CONTRAST: Instilled by Ordering Physician MEDICAL HISTORY : Renal calculi. SURGICAL HISTORY : None. ENCOUNTER: Initial ACUITY: 1 day PAIN SCORE: LOCATION: Left abdomen FINDINGS: 8 images at the time of antegrade pyelography show a catheter entering the collecting system of the [place] and coursing down the ureter. Contrast opacifies the collecting system with some contrast extra vasating into the adjacent soft tissues. The catheter and the ureter coils back upon itself at the le kamran of several surgical clips.. No contrast is seen coursing into the urinary bladder. CONCLUSION: Limited images as detailed above. Garrett Novak Jr., MD on February 03, 2017 at 11:33 Board Certified Radiologist. This report was verified electronically.
--- NOTE | 2017-02-03 11:38 | RADRPT ---
EXAM DATE/TIME: 02/03/2017 09:02 [facility] COMPARISON: CT ABDOMEN & PELVIS W CONTRAST, January 17, 2017, 14:33. INDICATIONS : Left kidney stones, evaluated stent placement and stones. 5.20 minutes 4 CONTRAST: Instilled by Ordering Physician MEDICAL HISTORY : Renal calculi. SURGICAL HISTORY : None. ENCOUNTER: Subsequent ACUITY: 1 day PAIN SCORE: Non-responsive. LOCATION: Right abdomen FINDINGS: 4 images taken at the time of antegrade pyelography show a catheter entering the collecting system of the kidney with contrast partially opacifying the renal pelvis and opacifying the ureter. There is o pacification of a tubal structure likely relating to an ileal conduit. Some extravasation of contrast within the region of the renal pelvis. The structures appear distended. CONCLUSION: Limited images as detailed above. Garrett Novak Jr., MD on February 03, 2017 at 11:35 Board Certified Radiologist. This report was verified electronically.
--- NOTE | 2017-02-03 11:39 | RADRPT ---
EXAM DATE/TIME: 02/03/2017 09:02 [facility] COMPARISON: ABDOMEN KUB ONLY, January 22, 2016, 4:41. INDICATIONS : Left kidney stones MEDICAL HISTORY : Renal calculi. SURGICAL HISTORY : None. ENCOUNTER: Subsequent ACUITY: 1 day PAIN SCORE: Non-responsive. LOCATION: Left abdomen FINDINGS: 2 images are centered over the lower abdomen and reveal a double-J stent overlying what is felt to be the renal pelvis on the left as well as extending down into what is felt to be an ileal conduit. CONCLUSION: Limited images as detailed above. Garrett Novak Jr., MD on February 03, 2017 at 11:37 Board Certified Radiologist. This report was verified electronically.
[2017-02-03] MEDS ORDERED: ONDANSETRON HCL 4 MG/2 ML VIAL IV PUSH PRN (11:45)
[2017-02-03] MEDS ORDERED: GENTAMICIN SULFATE 80 MG/2 ML VIAL IM SCH (11:45)
[2017-02-03] MEDS ORDERED: ALBUTEROL SULFATE 90 MCG/ACT HFA 8 GM INHALER INH PRN (11:45)
[2017-02-03] MEDS ORDERED: LORazepam 2 MG/ML VIAL IV PUSH PRN (11:45)
[2017-02-03] MEDS ORDERED: ACETAMINOPHEN 650 MG/20.3 ML UDC PO PRN (11:45)
[2017-02-03] MEDS ORDERED: LIDOCAINE HCL 1% PF 5 ML AMPULE OTHER ONE (12:00)
[2017-02-03] MEDS ORDERED: NEOSTIGMINE 3 MG/3 ML SYR IV ONE (12:00)
[2017-02-03] MEDS ORDERED: ONDANSETRON HCL 4 MG/2 ML VIAL IV PUSH ONE (12:00)
[2017-02-03] MEDS ORDERED: ROCURONIUM INJ 50 MG/5 ML SYRINGE IV PUSH ONE (12:00)
[2017-02-03] MEDS ORDERED: MIDAZOLAM HCL 2 MG/2 ML VIAL IV ONE (12:00)
[2017-02-03] MEDS ORDERED: ePHEDrine/NS 25 MG/5 ML SYR IV ONE (12:00)
[2017-02-03] MEDS: LACTATED RINGER'S 1000 ML INJ 1,000 ML IV SCH ×2 (12:00→22:18)
[2017-02-03] MEDS ORDERED: DEXAMETHASONE SOD PHOS 4 MG/ML VIAL IV ONE (12:00)
[2017-02-03] MEDS ORDERED: PHENYLEPH/NS 1000 MCG/10 ML SYR IV ONE (12:00)
[2017-02-03] MEDS ORDERED: PROPOFOL 200 MG/20 ML AMP IV ONE (12:00)
[2017-02-03] MEDS ORDERED: HYDROmorphone HCL PCA 6 MG/30 ML IV ONE (12:01)
--- NOTE | 2017-02-03 12:08 | PD.OP ---
Operative Report Date of Surgery: Feb 03, 2017 Preoperative Diagnosis: Left staghorn calculus Postoperative Diagnosis: Same Procedure: Left percutaneous nephrolithotomy with left double-J stent insertion Surgeon: [employer] Director(s): None Resident Surgeon: None Operation and Findings: 56 year-old male with history of muscle invasive bladder cancer and had a cystectomy ileal conduit back in 2015. Patient developed a left staghorn calculus and underwent percutaneous nephrostomy tube placement with nephroureteral stent with ureteral dilatation proximally 1 month ago by special procedures. Plan today was to taken to the operating room to undergo a left percutaneous nephrolithotomy with a stent insertion. Risk and benefits were discussed preoperatively and the patient was willing to proceed. Patient was brought to operating room and identified by myself as Herve Peguero. He was placed in the prone position on the operating table after he received general endotracheal tube anesthesia. All areas were appropriately padded and the ostomy bag was connected to a Lipscomb catheter drainage bag. He was prepped and draped in usual sterile fashion and received preprocedure antibiotics. Under fluoroscopic imaging guidance, an attempt was made to place an Amplatz Super Stiff wire through the percutaneous nephrostomy tube with nephroureteral stent. This was unsuccessful and then a 0.35 sensor wire was able to be passed through the tube and down into the conduit with a good curl. The nephrostomy tube with nephroureteral stent was then removed over the wire leaving the wire in place. The wire was then secured with a clamp. The NephroMax balloon dilatation system was then passed over the wire under fluoroscopic guidance. Once the balloon was in good position, the balloon was then inflated and dilatation occurred. The pressure was up to 12 mmHg and held for 2 minutes. The Amplatz sheath was then passed over the balloon dilatation apparatus and then the balloon was deflated. For scope was then passed into the collecting system of the kidney. He owns were then visualized in the lower pole and evacuated with the cyber wand and vacuum suction device. I was unable to visualize any stones under fluoroscopic imaging throughout the entire case. The flexible cystoscope was then passed into the kidney with attempt to visualize more stone burden. None was visualized. Based on placement of the percutaneous nephrostomy tube and reviewed the CT images, it appeared that there may be more stone burden in the lower pole that could not be accessed. No further stone burden was visualized using the flexible cystoscope and the nephroscope. An antegrade nephrostogram was performed and no visualization of any remaining stone was identified. Decision was made to leave a 24 cm 6 [place] double-J stent which was passed over the wire with a good curl in the conduit and a good curl in the kidney. The 16 [place] tip catheter was then passed over the wire and left in the collecting system. Antegrade nephrostogram confirmed good placement of the Lipscomb catheter as well as the stent. No residual stones were identified. The counts tip catheter was secured to the skin with 0 silk suture and he was awoken and extubated transferred recovery room in stable condition. He will obtain a CT scan in the morning to determine if there is any residual stone burden. Fish Tucker DO Feb 03, 2017 12:08
[2017-02-03] MEDS ORDERED: diphenhydrAMINE HCL 50 MG/ML VIAL IV PUSH PRN (13:15)
[2017-02-03] MEDS ORDERED: HYDROmorphone HCL PCA 6 MG/30 ML IV SCH (13:15)
[2017-02-03] MEDS ORDERED: NALOXONE HCL 0.4 MG/ML AMP IV PUSH PRN (13:15)
[2017-02-03] MEDS: PCA - TOTAL MG DILAUDID DELIVERED PER SHIFT SCH ×2 (14:00→21:48)
[2017-02-03 16:00] VITALS: BP 104/68; PULSE 76; RESP 17; TEMP 97.9; O2SAT 98
[2017-02-03] MEDS ORDERED: PILL SPLITTER OTHER PRN (16:45)
[2017-02-03] MEDS ORDERED: DO NOT ADM ANY ANTICOAGULANT DRUGS PRN (17:00)
[2017-02-03] MEDS: GENTAMICIN/SOD CHL 80 MG/100 ML IV SCH (18:25)
[2017-02-03 20:00] VITALS: BP 97/61; PULSE 78; RESP 18; TEMP 96.3; O2SAT 96
[2017-02-04] VITALS (7 sets, daily range): BP systolic 81–126; BP diastolic 52–67; PULSE 75–90; RESP 16–19; TEMP 97.2–98.8; O2SAT 95–100
[2017-02-04] MEDS: GENTAMICIN/SOD CHL 80 MG/100 ML IV SCH ×3 (01:37→15:25)
[2017-02-04] MEDS ORDERED: SODIUM CHLOR 0.9% 1000 ML INJ 1,000 ML IV SCH (06:00)
--- NOTE | 2017-02-04 08:41 | RADRPT ---
EXAM DATE/TIME: 02/04/2017 08:18 [facility] COMPARISON: CT ABDOMEN & PELVIS W CONTRAST, September 16, 2016, 14:46. ABDOMEN KUB ONLY, February 03, 2017, 9:02. CT A BDOMEN & PELVIS W CONTRAST, January 17, 2017, 14:33. INDICATIONS : Status post left percutaneous nephrolithotomy with left double-J stent insertion. Evaluate for resid ual stone burden. ORAL CONTRAST: No oral contrast ingested. RADIATION DOSE: 5.72 CTDIvol (mGy) MEDICAL HISTORY : Carcinoma, bladder. Chronic obstructive pulmonary disease. Renal failure. SURGICAL HISTORY : Appendectomy. cystectomy ileal conduit, Left percutaneous nephrolithotomy with left double-J stent in sertion ENCOUNTER: Initial ACUITY: 1 day PAIN SCALE: 9/10 LOCATION: Upper back TECHNIQUE: Volumetric scanning of the abdomen was performed. Using automated exposure control and adjustment of the mA and/or kV according to patient size, radiation dose was kept as low as reasonably achievable to obtain optimal diagnostic quality images. DICOM format image data is available electronically for review and comparison. FINDINGS: LOWER LUNGS: Tiny left effusion is new. Mild bibasilar atelectasis. LIVER: Homogeneous density without lesion. There is no dilation of the biliary tree. No calcified gallston es. SPLEEN: Normal size without lesion. PANCREAS: Multiple small parenchymal calcifications noted. No pseudocyst observed. No ductal dilatation. No acu te inflammatory change. KIDNEYS: There is a large-caliber left nephroureteral catheter observed. There has been a reduction in the sto ne burden involving the collecting system of the left kidney. A total of 4 small stones remain within the left kidney. Within the lower pole these measure 3 mm and 4 mm. Within the mid pole these measur e 6 mm and 3 mm. A very small amount of perinephric stranding is seen. No perinephric hematoma apprec iated. No ureteral stones observed. Multiple stones are again seen involving the right kidney. The la rgest measures 1 cm. No hydronephrosis. An ileal conduit observed within the right lower quadrant. ADRENAL GLANDS: Within normal limits. AORTA/RETROPERITONEAL: There is no aneurysm or lymphadenopathy. BOWEL/MESENTERY: The stomach and visualized small and large bowel demonstrate no abnormality. MUSCULOSKELETAL: Within normal limits for patient age. CONCLUSION: 1. Reduction in the stone burden involving the left kidney with a total for residual stones with the largest measuring 6 mm. 2. Multiple right-sided renal stones with the largest measuring 1 cm. 3. Pancreatic calcifications consistent with chronic pancreatitis. 4. Ileal conduit. 5. New small left effusion. Garrett Novak Jr., MD on February 04, 2017 at 8:29 Board Certified Radiologist. This report was verified electronically.
[2017-02-04] MEDS: TIOTROPIUM BROMIDE 18 MCG INH INH SCH (11:07)
[2017-02-04] MEDS: LACTATED RINGER'S 1000 ML INJ 1,000 ML IV SCH ×2 (11:09→20:49)
[2017-02-04] MEDS: ACETAMINOPHEN/HYDROcodone 325 MG/7.5 MG TAB PO PRN ×2 (13:34→18:03)
--- NOTE | 2017-02-04 14:39 | HHI.PR ---
Subjective Patient symptoms today Pt seen and examined. Some pain. Hungry. Objective Vital Signs Vital Signs Date Time Temp Pulse Resp B/P (MAP) Pulse Ox O2 Delivery O2 Flow Rate FiO2 02/04/17 12:00 98.7 80 19 115/59 (77) 98 02/04/17 08:45 Nasal Cannula 2.00 02/04/17 08:00 97.9 78 19 92/52 (65) 97 02/04/17 06:53 75 17 97/54 (68) 95 02/04/17 04:00 98.8 90 16 93/53 (66) 96 02/04/17 04:00 81/53 (62) 02/04/17 00:00 98.1 86 18 94/59 (71) 97 02/03/17 21:48 20 02/03/17 20:00 96.3 78 18 97/61 (73) 96 02/03/17 16:00 97.9 76 17 104/68 (80) 98 02/03/17 14:50 97.2 77 16 110/75 (87) 99 Nasal Cannula 2 Intake & Output 02/04/17 02/04/17 07:00 19:00 Intake Total 820 ml 1965 ml Output Total 1250 ml 1600 ml Balance -430 ml 365 ml Intake Oral 240 ml IV Total 820 ml 1725 ml Output Urine Total 850 ml Drainage Total 400 ml 1600 ml Result Diagram: 02/03/17 0640 02/03/17 0640 Imaging Last [address] 02/04/17 0600 Signed Impressions: Service Date/Time: Saturday, February 04, 2017 08:18 - CONCLUSION: 1. Reduction in the stone burden involving the left kidney with a total for residual stones with the largest measuring 6 mm. 2. Multiple right-sided renal stones with the largest measuring 1 cm. 3. Pancreatic calcifications consistent with chronic pancreatitis. 4. Ileal conduit. 5. New small left effusion. Garrett Novak Jr., MD Objective Remarks Abd:soft,nt,nd Urine from PCNT is clear Medications and IVs Current Medications Medications (Trade) Dose Ordered Sig/Jose Elias Route Start Time Stop Time Status Last Admin Lactated Ringer's 1,000 ml @ 30 mls/hr Q24H PRN IV 02/03/17 06:30 02/06/17 06:29 02/03/17 06:58 Sodium Chloride 500 ml @ 30 mls/hr [id number] PRN IV 02/03/17 06:30 02/06/17 06:29 (Lopressor) 25 mg BUILDING MAINTENANCE CUSTODIAN PRN PO 02/03/17 06:30 02/06/17 06:29 (Betadine 5% Antisepsis Kit) 1 applic BUILDING MAINTENANCE CUSTODIAN PRN EACH NARE 02/03/17 06:30 02/06/17 06:29 02/03/17 06:58 (Chlorhexidine 2% Cloth) 3 pack BUILDING MAINTENANCE CUSTODIAN PRN TOPICAL 02/03/17 06:30 02/06/17 06:29 02/03/17 06:30 (NovoLIN R INJ) See Protocol Table ... BUILDING MAINTENANCE CUSTODIAN PRN SQ 02/03/17 06:30 02/06/17 06:29 Vancomycin HCl 1000 mg/Sodium Chloride 250 ml @ 250 mls/hr BUILDING MAINTENANCE CUSTODIAN IV 02/03/17 07:45 02/06/17 07:44 (Zofran Inj) 4 mg Q6HR PRN IV PUSH 02/03/17 11:45 (Tylenol 650 Mg/ 20 ml Liq) 650 mg Q6H PRN PO 02/03/17 11:45 (Ambien) 5 mg HS PRN PO 02/03/17 11:45 (Ativan Inj) 1 mg Q6H PRN IV PUSH 02/03/17 11:45 Lactated Ringer's 1,000 ml @ 100 mls/hr Q10H IV 02/03/17 17:00 02/04/17 11:09 (Proair Hfa Inh) 2 puff Q6H PRN INH 02/03/17 11:45 (Zanaflex) 2 mg Q8HR PO 02/03/17 14:00 02/04/17 13:34 (Spiriva Inh) 18 mcg DAILY INH 02/04/17 09:00 02/04/17 11:07 ([place] 7.5-325 Mg) 1 tab Q4H PRN PO 02/03/17 11:45 02/04/17 13:34 (Benadryl Inj) 25 mg Q6H PRN IV PUSH 02/03/17 13:15 (Pill Splitter) 1 ea UNSCH PRN OTHER 02/03/17 16:45 Miscellaneous Information ALL NURSING DEPARTME... UNSCH PRN .XX 02/03/17 17:00 02/04/17 16:59 Gentamicin Sulfate/Sodium Chloride 100 ml @ 200 mls/hr Q8H IV 02/03/17 17:00 02/04/17 11:07 Assessment and Plan Assessment and Plan Stable s/p Left PCNL CT scan with a few small residual stones noted in left kidney Will need Nephroscopy on Tuesday Fish Tucker DO Feb 04, 2017 14:38
[2017-02-04] MEDS ORDERED: SODIUM CHLOR 0.45% 500 ML INJ 500 ML IV PRN (14:45)
[2017-02-04] MEDS: HYDROmorphone HCL PF 1 MG/ML VIAL IV PUSH PRN (15:25)
[2017-02-04] MEDS: ZOLPIDEM TARTRATE 5 MG TAB PO PRN (20:45)
[2017-02-04] MEDS ORDERED: NICOTINE 21 MG/24 HR PATCH T-DERMAL SCH (23:45)
[2017-02-05] MEDS: GENTAMICIN/SOD CHL 80 MG/100 ML IV SCH ×3 (00:32→18:37)
[2017-02-05] MEDS: ACETAMINOPHEN/HYDROcodone 325 MG/7.5 MG TAB PO PRN ×3 (03:41→15:42)
[2017-02-05 04:00] VITALS: BP 112/59; PULSE 83; RESP 18; TEMP 98.6; O2SAT 97
[2017-02-05 08:00] VITALS: BP 117/62; PULSE 70; RESP 16; TEMP 97.6; O2SAT 97
[2017-02-05 09:00] LABS: HEMATOCRIT 26.4 % (39.0-51.0); MEAN CELL VOLUME 88.4 FL (80.0-100.0); MEAN CORPUSCULAR HEMOGLOBIN 29.4 PG (27.0-34.0); MEAN CORPUSCULAR HGB CONC 33.3 % (32.0-36.0); PLATELET COUNT 362 TH/MM3 (150-450); RED BLOOD COUNT 2.99 MIL/MM3 (4.50-5.90); REVIEW FLAG FINAL; WHITE BLOOD COUNT 8.9 TH/MM3 (4.0-11.0)
[2017-02-05] MEDS: TIOTROPIUM BROMIDE 18 MCG INH INH SCH (09:21)
[2017-02-05 09:32] VITALS: O2SAT 97
[2017-02-05 09:37] LABS: BICARBONATE 18.5 MEQ/L (21.0-32.0); POTASSIUM 3.7 MEQ/L (3.5-5.1)
--- NOTE | 2017-02-05 10:29 | HHI.PR ---
Subjective Patient symptoms today Pt seen and examined. Feeling better. Tolerating diet Objective Vital Signs Vital Signs Date Time Temp Pulse Resp B/P (MAP) Pulse Ox O2 Delivery O2 Flow Rate FiO2 02/05/17 08:00 97.6 70 16 117/62 (80) 97 02/05/17 04:00 98.6 83 18 112/59 (76) 97 02/04/17 20:58 98.0 81 18 108/58 (75) 99 02/04/17 16:00 97.2 77 19 126/67 (86) 100 02/04/17 12:00 98.7 80 19 115/59 (77) 98 Intake & Output 02/05/17 02/05/17 07:00 19:00 Output Total 2250 ml Balance -2250 ml Output Urine Total 600 ml Drainage Total 1650 ml Result Diagram: 02/05/17 0802/05/17 0804 Objective Remarks Abd:soft,nt,nd Urine from PCNT is clear 02/05 Abd:soft,nt,nd PCNT: urine clear Medications and IVs Current Medications Medications (Trade) Dose Ordered Sig/Jose Elias Route Start Time Stop Time Status Last Admin Lactated Ringer's 1,000 ml @ 30 mls/hr Q24H PRN IV 02/03/17 06:30 02/06/17 06:29 02/03/17 06:58 Sodium Chloride 500 ml @ 30 mls/hr [id number] PRN IV 02/03/17 06:30 02/06/17 06:29 (Lopressor) 25 mg HOG PUSHER PRN PO 02/03/17 06:30 02/06/17 06:29 (Betadine 5% Antisepsis Kit) 1 applic HOG PUSHER PRN EACH NARE 02/03/17 06:30 02/06/17 06:29 02/03/17 06:58 (Chlorhexidine 2% Cloth) 3 pack HOG PUSHER PRN TOPICAL 02/03/17 06:30 02/06/17 06:29 02/03/17 06:30 (NovoLIN R INJ) See Protocol Table ... HOG PUSHER PRN SQ 02/03/17 06:30 02/06/17 06:29 Vancomycin HCl 1000 mg/Sodium Chloride 250 ml @ 250 mls/hr HOG PUSHER IV 02/03/17 07:45 02/06/17 07:44 (Zofran Inj) 4 mg Q6HR PRN IV PUSH 02/03/17 11:45 (Tylenol 650 Mg/ 20 ml Liq) 650 mg Q6H PRN PO 02/03/17 11:45 (Ambien) 5 mg HS PRN PO 02/03/17 11:45 02/04/17 20:45 (Ativan Inj) 1 mg Q6H PRN IV PUSH 02/03/17 11:45 Lactated Ringer's 1,000 ml @ 100 mls/hr Q10H IV 02/03/17 17:00 02/04/17 20:49 (Proair Hfa Inh) 2 puff Q6H PRN INH 02/03/17 11:45 (Zanaflex) 2 mg Q8HR PO 02/03/17 14:00 02/05/17 05:10 (Spiriva Inh) 18 mcg DAILY INH 02/04/17 09:00 02/05/17 09:21 ([place] 7.5-325 Mg) 1 tab Q4H PRN PO 02/03/17 11:45 02/05/17 09:21 (Benadryl Inj) 25 mg Q6H PRN IV PUSH 02/03/17 13:15 (Pill Splitter) 1 ea UNSCH PRN OTHER 02/03/17 16:45 Gentamicin Sulfate/Sodium Chloride 100 ml @ 200 mls/hr Q8H IV 02/03/17 17:00 02/05/17 09:22 (Dilaudid Pf Inj) 0.2 mg Q4H PRN IV PUSH 02/04/17 14:45 02/04/17 15:25 Sodium Chloride 500 ml @ 1 mls/hr Q24H PRN IV 02/04/17 14:45 Assessment and Plan Assessment and Plan Stable s/p Left PCNL CT scan with a few small residual stones noted in left kidney Will need Nephroscopy on Monday 02/05 Stable s/p Left PCNL OR in Fish Gardner DO Feb 05, 2017 10:29
[2017-02-05 12:00] VITALS: BP 117/64; PULSE 84; RESP 18; TEMP 97.4; O2SAT 98
[2017-02-05] MEDS: HYDROmorphone HCL PF 1 MG/ML VIAL IV PUSH PRN (12:08)
[2017-02-05] MEDS: LACTATED RINGER'S 1000 ML INJ 1,000 ML IV SCH ×2 (15:54→17:45)
[2017-02-05 16:00] VITALS: BP 127/67; PULSE 85; RESP 17; TEMP 98.4; O2SAT 99
[2017-02-05 20:00] VITALS: BP 131/69; PULSE 70; RESP 22; TEMP 98.4; O2SAT 99
[2017-02-05] MEDS: ZOLPIDEM TARTRATE 5 MG TAB PO PRN (22:59)
[2017-02-05] MEDS: HYDROmorphone HCL PF 2 MG/ML VIAL IV PUSH PRN (23:04)
[2017-02-06] VITALS: BP 121/63; PULSE 70; RESP 20; TEMP 97.5; O2SAT 96
[2017-02-06] MEDS: GENTAMICIN/SOD CHL 80 MG/100 ML IV SCH ×2 (00:48→08:31)
[2017-02-06] MEDS: LACTATED RINGER'S 1000 ML INJ 1,000 ML IV SCH ×2 (04:09→14:00)
[2017-02-06] MEDS: HYDROmorphone HCL PF 2 MG/ML VIAL IV PUSH PRN ×5 (04:09→23:33)
[2017-02-06] MEDS ORDERED: LACTATED RINGER'S 1000 ML IV PRN (06:00)
[2017-02-06 08:00] VITALS: BP 117/64; PULSE 75; RESP 18; TEMP 97.2; O2SAT 96
[2017-02-06] MEDS: TIOTROPIUM BROMIDE 18 MCG INH INH SCH (08:33)
[2017-02-06] MEDS ORDERED: PROPOFOL 500 MG/50 ML INJ 0 ML ONE (11:42)
[2017-02-06] MEDS ORDERED: HYDROmorphone HCL PF 2 MG/ML VIAL ONE (11:52)
[2017-02-06] MEDS ORDERED: SUGAMMADEX SODIUM 200 MG/2 ML VIAL IV PUSH ONE ×2 (11:52)
[2017-02-06] MEDS ORDERED: HYDROCORTISONE SOD SUCCINATE 100 MG VIAL ONE (11:53)
[2017-02-06 12:00] VITALS: BP 122/64; PULSE 64; RESP 14; TEMP 98.3; O2SAT 98
[2017-02-06] MEDS ORDERED: PROPOFOL 200 MG/20 ML AMP IV ONE (12:00)
[2017-02-06] MEDS ORDERED: LIDOCAINE HCL 1% PF 5 ML AMPULE OTHER ONE (12:00)
--- NOTE | 2017-02-06 13:27 | PD.OP ---
Operative Report Date of Surgery: Feb 06, 2017 Preoperative Diagnosis: Residual left renal calculi Postoperative Diagnosis: Same Procedure: Pyeloscopy with stone extraction and antegrade nephrostogram Anesthesia: MAC Surgeon: Fish Tucker Geochemical Laboratory Technician(s): Rhina Resident Surgeon: None Operation and Findings: 56 year-old male status post left percutaneous nephrolithotomy on 02/03/17. Postoperative CT scan demonstrated a few residual stones in the left lower pole. Patient with history of a ileal conduit in an attempt was being made to remove his residual stone burden. Risk and benefits were discussed preoperatively and the patient was willing to proceed. Patient brought to operating room and identified by myself and identified by myself as Herve Peguero. He is placed in the lateral recumbent position with the left side up. He received preprocedure antibiotics was prepped and draped in usual sterile fashion. Mac anesthesia was administered. The 16 [place] tip catheter was removed from the left flank site and the flexible ureteroscope was introduced into the collecting system. Pyeloscopy was then performed visualizing the entire collecting system. There were some small stones identified at the area of the UPJ and these were grasped with a basket extractor and removed. Some stones were too small to be grasped. Attempt was made to get into the lower pole of the collecting system but due to the initial access I was unable to visualize the entire lower pole. No stones were noted and midpole collecting system and clot was identified. Antegrade nephrostogram was then performed and no filling defects were visualized. I was unable to visualize any stones on fluoroscopy. A 0.35 sensor wire was then passed through the ureteroscope into the area of the UPJ and then an 18 [place] tip catheter was passed over the wire. The catheter was in good position and 3 cc were placed in the balloon. A 0 silk suture was then used to anchor the catheter in place and was connected to a drainage bag. He was awoken and transferred to her room in stable condition. He tolerated the procedure well and was stable throughout the entire case. Fish Tucker DO Feb 06, 2017 13:27
[2017-02-06] MEDS ORDERED: DO NOT ADM ANY ANTICOAGULANT DRUGS PRN (13:34)
[2017-02-06] MEDS ORDERED: *morphine SULFATE 8 MG/ML PERIprocedure ONLY ONE (14:11)
[2017-02-06 14:22] LABS: HEMATOCRIT 32.5 % (39.0-51.0); MEAN CELL VOLUME 90.2 FL (80.0-100.0); MEAN CORPUSCULAR HGB CONC 32.1 % (32.0-36.0); PLATELET COUNT 368 TH/MM3 (150-450); RED BLOOD COUNT 3.61 MIL/MM3 (4.50-5.90); RED CELL DISTRIBUTION WIDTH 16.2 % (11.6-17.2); REVIEW FLAG FINAL
[2017-02-06 14:55] LABS: BICARBONATE 19.2 MEQ/L (21.0-32.0); POTASSIUM 4.5 MEQ/L (3.5-5.1)
[2017-02-06] MEDS: GENTAMICIN 80 MG PREMIX 100 ML IV SCH (15:28)
--- NOTE | 2017-02-06 15:29 | RADRPT ---
EXAM DATE/TIME: 02/06/2017 13:18 [facility] COMPARISON: No previous studies available for comparison. INDICATIONS : Kidney stones left side MEDICAL HISTORY : Carcinoma, bladder. Chronic obstructive pulmonary disease. Renal failure. SURGICAL HISTORY : Appendectomy. cystectomy ileal conduit, Left percutaneous nephrolithotomy with left double-J stent in sertion ENCOUNTER: Initial ACUITY: 4 - 6 days PAIN SCORE: Non-responsive. LOCATION: Left Abdomen FINDINGS: Left nephrostomy catheters in place with a double-J stent identified in its proximal portion. A stone is identified superior to the nephrostomy CONCLUSION: 1. Postsurgical changes as above. Beau Burris MD on February 06, 2017 at 15:27 Board Certified Radiologist. This report was verified electronically.
[2017-02-06 16:00] VITALS: BP 123/72; PULSE 69; RESP 18; TEMP 97.8; O2SAT 98
[2017-02-06 18:06] VITALS: O2SAT 98
[2017-02-06] MEDS: ZOLPIDEM TARTRATE 5 MG TAB PO PRN (19:28)
[2017-02-06 20:00] VITALS: BP 109/56; PULSE 82; RESP 22; TEMP 98.3; O2SAT 97
[2017-02-07] VITALS: BP 103/57; PULSE 60; RESP 20; TEMP 98.3; O2SAT 97
[2017-02-07] MEDS: GENTAMICIN 80 MG PREMIX 100 ML IV SCH ×2 (00:35→09:47)
[2017-02-07] MEDS: LACTATED RINGER'S 1000 ML INJ 1,000 ML IV SCH ×2 (00:37→11:00)
[2017-02-07 04:00] VITALS: BP 115/60; PULSE 65; RESP 20; TEMP 98.6; O2SAT 97
[2017-02-07] MEDS: HYDROmorphone HCL PF 2 MG/ML VIAL IV PUSH PRN ×2 (04:04→09:48)
[2017-02-07 08:00] VITALS: BP 109/55; PULSE 71; RESP 16; TEMP 99.1; O2SAT 98
--- NOTE | 2017-02-07 08:13 | HHI.PR ---
Subjective Patient symptoms today Pt ready for discharge. Objective Vital Signs Vital Signs Date Time Temp Pulse Resp B/P (MAP) Pulse Ox O2 Delivery O2 Flow Rate FiO2 02/07/17 04:34 18 02/07/17 04:00 98.6 65 20 115/60 (78) 97 02/07/17 00:00 98.3 60 20 103/57 (72) 97 02/06/17 20:00 98.3 82 22 109/56 (73) 97 02/06/17 18:06 98 21 02/06/17 16:00 97.8 69 18 123/72 (89) 98 02/06/17 14:15 61 16 116/62 (80) 98 Room Air 02/06/17 14:00 63 16 115/72 (86) 99 Room Air 02/06/17 13:45 50 16 119/70 (86) 100 Room Air 02/06/17 13:27 97.4 44 16 112/77 (89) 100 Room Air 02/06/17 12:00 98.3 64 14 122/64 (83) 98 Intake & Output 02/07/17 02/07/17 07:00 19:00 Intake Total 1075 ml Output Total 950 ml Balance 125 ml Intake Oral 320 ml IV Total 755 ml Output Urine Total 750 ml Drainage Total 200 ml # Bowel Movements 0 Result Diagram: 02/06/17 1300 02/06/17 1300 Objective Remarks Abd:soft,nt,nd Urine from PCNT is clear 02/05 Abd:soft,nt,nd PCNT: urine clear 02/07 02/05 Abd:soft,nt,nd PCNT: urine clear Medications and IVs Current Medications Medications (Trade) Dose Ordered Sig/Jose Elias Route Start Time Stop Time Status Last Admin (Zofran Inj) 4 mg Q6HR PRN IV PUSH 02/03/17 11:45 (Tylenol 650 Mg/ 20 ml Liq) 650 mg Q6H PRN PO 02/03/17 11:45 (Ambien) 5 mg HS PRN PO 02/03/17 11:45 02/06/17 19:28 (Ativan Inj) 1 mg Q6H PRN IV PUSH 02/03/17 11:45 Lactated Ringer's 1,000 ml @ 100 mls/hr Q10H IV 02/03/17 17:00 02/07/17 00:37 (Proair Hfa Inh) 2 puff Q6H PRN INH 02/03/17 11:45 (Zanaflex) 2 mg Q8HR PO 02/03/17 14:00 02/07/17 05:03 (Spiriva Inh) 18 mcg DAILY INH 02/04/17 09:00 02/06/17 08:33 ([place] 7.5-325 Mg) 1 tab Q4H PRN PO 02/03/17 11:45 02/05/17 15:42 (Benadryl Inj) 25 mg Q6H PRN IV PUSH 02/03/17 13:15 (Pill Splitter) 1 ea UNSCH PRN OTHER 02/03/17 16:45 Sodium Chloride 500 ml @ 1 mls/hr Q24H PRN IV 02/04/17 14:45 (Dilaudid Pf Inj) 0.2 mg Q4H PRN IV PUSH 02/05/17 18:45 02/07/17 04:04 Lactated Ringer's 1,000 ml @ 30 mls/hr Q24H PRN IV 02/06/17 06:00 02/09/17 05:59 Gentamicin Sulfate/Sodium Chloride 100 ml @ 200 mls/hr Q8H IV 02/06/17 17:00 02/07/17 09:29 02/07/17 00:35 Miscellaneous Information ALL NURSING DEPARTME... UNSCH PRN .XX 02/06/17 13:34 02/07/17 13:33 Assessment and Plan Assessment and Plan 02/04 Stable s/p Left PCNL CT scan with a few small residual stones noted in left kidney Will need Nephroscopy on Monday 02/05 Stable s/p Left PCNL OR in AM 02/07 Stable s/p left PCNL Discharge home today Fish Tucker DO Feb 07, 2017 08:13
[2017-02-07 09:20] VITALS: O2SAT 98
[2017-02-07] MEDS: TIOTROPIUM BROMIDE 18 MCG INH INH SCH (09:46)
[2017-02-07 12:00] VITALS: BP 130/67; PULSE 66; RESP 18; TEMP 98.6; O2SAT 97
[2017-02-07] MEDS ORDERED: HYDR-3534 PO (15:38)
[2017-02-07] MEDS ORDERED: MORP1TAB25 PO (15:40)
[2017-02-07] MEDS ORDERED: BACT800T5 PO (15:40)
[2017-02-07 16:00] VITALS: BP 123/57; PULSE 65; RESP 16; TEMP 98.1; O2SAT 96
== END 2017-02-07 17:26 | DRG 661 ==
LOC: HSDI 05:51 → N07B 15:10
PROVIDERS: ADMIT Urology; ATTEND Urology
PROC: 0TP93DZ Removal of Intraluminal Device from Ureter, Percutaneous Approach (ICD-10-PCS; 2017-02-03)
PROC: 0T778DZ Dilation of Left Ureter with Intraluminal Device, Via Natural or Artificial Opening Endoscopic (ICD-10-PCS; 2017-02-03)
PROC: 0TP5X0Z Removal of Drainage Device from Kidney, External Approach (ICD-10-PCS; 2017-02-03)
PROC: 0TC13ZZ Extirpation of Matter from Left Kidney, Percutaneous Approach (ICD-10-PCS; principal; 2017-02-03 07:55)
PROC: 0TC48ZZ Extirpation of Matter from Left Kidney Pelvis, Via Natural or Artificial Opening Endoscopic (ICD-10-PCS; 2017-02-06)
DX: N20.0 Calculus of kidney (principal); I50.9 Heart failure, unspecified; J44.9 Chronic obstructive pulmonary disease, unspecified; I25.10 Atherosclerotic heart disease of native coronary artery without angina pectoris; J45.909 Unspecified asthma, uncomplicated; N18.9 Chronic kidney disease, unspecified; F10.10 Alcohol abuse, uncomplicated; F17.210 Nicotine dependence, cigarettes, uncomplicated; Z85.51 Personal history of malignant neoplasm of bladder; Z86.73 Personal history of transient ischemic attack (TIA), and cerebral infarction without residual deficits; Z88.0 Allergy status to penicillin; Z90.6 Acquired absence of other parts of urinary tract; Z86.19 Personal history of other infectious and parasitic diseases; Z88.5 Allergy status to narcotic agent
CPT/HCPCS: 74000; 74150; 74425; 76000; 80048; 85025; 85027; C1726; C1769; C2617; J0131; J1100; J1170; J1580; J1720; J1940; J2060; J2250; J2270; J2370; J2405; J2710; J3010; J3370; J7030; J7050; J7120; Q9967